=== PATIENT | male | born 1985 | race Caucasian/White ===

== ENCOUNTER → 2016-11-19 | Outpatient (CLI) | payer OTHER ==
[~2016-11-19] MED LIST: AMLO10TA2 PO; GABA300C5 PO; LANTUS2P SQ; LANTUSP SQ; NOVOLOGP2 SQ; ZYRT10TA12 PO
--- NOTE | 2016-11-19 18:01 | RADRPT ---
EXAM DATE/TIME: 11/19/2016 17:15 [facility] COMPARISON: No previous studies available for comparison. INDICATIONS : Hypertension. Evalaute for pneumothorax, pneumonia, or other communicable disease. MEDICAL HISTORY : None. SURGICAL HISTORY : None. ENCOUNTER: Initial ACUITY: 1 day PAIN SCORE: 0/10 LOCATION: Bilateral chest FINDINGS: PA and lateral views of the chest demonstrate the lungs to be symmetrically aerated without evidence of mass, infiltrate or effusion. The cardiomediastinal contours are unremarkable. Osseous structure s are intact. CONCLUSION: No acute disease. Scout Beasley MD FACR on November 19, 2016 at 18:00 Board Certified Radiologist. This report was verified electronically.
== END ==
LOC: HRAD 16:48
PROVIDERS: ATTEND Internal Medicine
DX: I10 Essential (primary) hypertension (principal)
CPT/HCPCS: 71020

== ENCOUNTER 2016-11-26 17:22 | Emergency (ER) | payer OTHER ==
[~2016-11-26] VITALS: Ht 175.3 cm; Wt 85.0 kg
[~2016-11-26 17:22] MED LIST changes: -AMLO10TA2 PO; -GABA300C5 PO; -LANTUS2P SQ
[2016-11-26 17:24] VITALS: BP 181/121; PULSE 100; RESP 20; TEMP 99.6; O2SAT 100
[2016-11-26 17:29] VITALS: BP 186/94
[2016-11-26] MEDS ORDERED: LANTUS2P SQ (18:09)
[2016-11-26] MEDS ORDERED: NOVOLOGP2 SQ (18:09)
[2016-11-26] MEDS ORDERED: SODIUM CHLOR 0.9% 1000 ML INJ 1,000 ML IV ONE (18:17)
--- NOTE | 2016-11-26 18:17 | PD ---
HPI Chief Complaint: Skin Problem Time Seen by Provider: 18:15 Travel History International Travel<30 days: No Contact w/Intl Traveler<30days: No Traveled to known affect area: No History of Present Illness HPI 31-year-old male with history of insulin-dependent diabetes, referred here by his primary care physician for evaluation of vomiting times one week. Patient reports that he has not been checking his blood sugar for the last week and has had several episodes of vomiting. He denies fevers or chills. No diarrhea. No abdominal pain. He does have pain in his bilateral feet and according to the paperwork that was provided by his primary care physician, he has been referred to a exchange clerk. [facility]LY [facility] Past Medical History Diabetes: Yes Patient Takes Glucophage: No Diminished Hearing: No Hypertension: Yes Tetanus Vaccination: Unknown Influenza Vaccination: No Past Surgical History Surgical History: No Previous Surgery Social History Alcohol Use: Yes (OCCASIONAL) Tobacco Use: Yes (4-5 CIGS) Substance Use: No Allergies-Medications (Allergen,Severity, Reaction): Coded Allergies: No Known Allergies (Unverified , 11/26/16) Reported Meds & Prescriptions Reported Meds & Active Scripts Active Reported Lantus Inj (Insulin Glargine) 1,000 Unit/10 Ml Vial 62 Units SQ DAILY Novolog Inj (Insulin Aspart) 1,000 Unit/10 Ml Vial 0 SQ DIRECTED Sliding Scale as directed. Review of Systems Except as stated in HPI: all other systems reviewed are Neg Physical Exam Narrative GENERAL: Well-developed, well-nourished, awake, alert, slightly tremulous, no apparent distress. SKIN: Focused skin assessment warm/dry. Bilateral feet with areas of brown, no necrosis, no warmth or erythema. No ulcerations. HEAD: Atraumatic. Normocephalic. EYES: Pupils equal and round. No scleral icterus. No injection or drainage. ENT: Mucous membranes pink and moist. NECK: Trachea midline. No JVD. CARDIOVASCULAR: Regular rate and rhythm. Bilateral dorsalis pedis pulses are brisk and equal. RESPIRATORY: No accessory muscle use. Clear to auscultation. Breath sounds equal bilaterally. GASTROINTESTINAL: Abdomen soft, non-tender, nondistended. MUSCULOSKELETAL: No obvious deformities. No clubbing. No cyanosis. No edema. NEUROLOGICAL: Awake and alert. No obvious cranial nerve deficits. Motor grossly within normal limits. Normal speech. PSYCHIATRIC: Appropriate mood and affect; insight and judgment normal. Data Data Last Documented VS Vital Signs Date Time Temp Pulse Resp B/P (MAP) Pulse Ox O2 Delivery O2 Flow Rate FiO2 11/26/16 19:19 96 20 166/95 (118) 100 Room Air 11/26/16 17:24 99.6 Orders Orders Complete Blood Count With Diff (11/26/16 18:17) Comprehensive Metabolic Panel (11/26/16 18:17) Beta Hydroxybutyrate (Acetone) (11/26/16 18:17) Blood Gas Venous (Vbg) (11/26/16 18:17) Ecg Monitoring (11/26/16 18:17) Iv Access Insert/Monitor (11/26/16 18:17) Oximetry (11/26/16 18:17) NPO (11/26/16 18:17) Sodium Chlor 0.9% 1000 Ml Inj (Ns 1000 M (11/26/16 18:17) Sodium Chloride 0.9% Flush (Ns Flush) (11/26/16 18:30) Ondansetron Inj (Zofran Inj) (11/26/16 18:30) Labs Laboratory Tests Test 11/26/16 18:30 White Blood Count 7.0 TH/MM3 Red Blood Count 4.45 MIL/MM3 Hemoglobin 16.3 GM/DL Hematocrit 45.5 % Mean Corpuscular Volume 102.1 FL Mean Corpuscular Hemoglobin 36.7 PG Mean Corpuscular Hemoglobin Concent 35.9 % Red Cell Distribution Width 12.7 % Platelet Count 145 TH/MM3 Mean Platelet Volume 8.5 FL Neutrophils (%) (Auto) 65.7 % Lymphocytes (%) (Auto) 22.9 % Monocytes (%) (Auto) 10.8 % Eosinophils (%) (Auto) 0.2 % Basophils (%) (Auto) 0.4 % Neutrophils # (Auto) 4.6 TH/MM3 Lymphocytes # (Auto) 1.6 TH/MM3 Monocytes # (Auto) 0.8 TH/MM3 Eosinophils # (Auto) 0.0 TH/MM3 Basophils # (Auto) 0.0 TH/MM3 CBC Comment DIFF FINAL Differential Comment Blood Gas Puncture Site CL Blood Gas Patient Temperature 98.6 Venous Blood pH 7.47 Venous Blood Partial Pressure CO2 41 mmHg Venous Blood Partial Pressure O2 23 mmHg Venous Blood HCO3 30 mmol/L Venous Blood Oxygen Saturation 39 % Venous Blood Oxygen Content 9.2 Vol % Venous Blood Base Excess 6.0 mmol/L Oxygen Delivery Device RA Blood Urea Nitrogen 7 MG/DL Creatinine 0.74 MG/DL Random Glucose 239 MG/DL Total Protein 8.2 GM/DL Albumin 4.1 GM/DL Calcium Level 9.1 MG/DL Alkaline Phosphatase 153 U/L Aspartate Amino Transf (AST/SGOT) 194 U/L Alanine Aminotransferase (ALT/SGPT) 141 U/L Total Bilirubin 2.5 MG/DL Sodium Level 133 MEQ/L Potassium Level 4.2 MEQ/L Chloride Level 94 MEQ/L Carbon Dioxide Level 28.3 MEQ/L Anion Gap 11 MEQ/L Estimat Glomerular Filtration Rate 123 ML/MIN B-Hydroxybutyrate 2.78 MMOL/L [facility] Medical Decision Making Medical Screen Exam Complete: Yes Emergency Medical Condition: Yes Differential Diagnosis DKA, metabolic abnormality, diabetic neuropathy Narrative Course Vital signs show heart rate 96, blood pressure 166/95, pulse ox 100% on room air , oral temp of 99.6F. CBC shows WBC 7, hemoglobin 16.3, hematocrit 45.5, platelets 145, MCV 102.1. CMP is remarkable for sodium 133, chloride 94, random glucose 240, T bili 2.5, AST 194, ALT 141. Venous pH is 7.47. Beta hydroxybutyrate is 2.78 Patient was given a liter of normal saline IV. He denies alcohol abuse, stating that he has a couple beers a couple times a week. He also denies illicit drug use and IVDU. His feet show no signs of cellulitis. He is ambulating without difficulty. He is tolerating clear liquids orally. I offered to give him some insulin, however he states he will take it when he gets home. He is stable for discharge home with outpatient follow-up with his primary care physician this week. I will also given the name of the exchange clerk with whom to follow-up with this week. He was informed on when to return to the emergency department. He verbalizes understanding and agreement with plan. Diagnosis Primary Impression: Nausea and vomiting Qualified Codes: R11.2 - Nausea with vomiting, unspecified Additional Impressions: Hyperglycemia Diabetic neuropathy Qualified Codes: E10.42 - Type 1 diabetes mellitus with diabetic polyneuropathy Transaminitis Referrals: Emily Mireles DPSwapnil [address] Primary Care Physician 3 days Additional Instructions: Follow-up with your primary care physician this week. Take insulin as prescribed. Follow-up with exchange clerk Dr. Mireles or a exchange clerk of your choice this week. Return to the emergency department for worsening symptoms or any other concerns. Disposition: 01 DISCHARGE HOME Condition: Stable Nathan Strickland MD Nov 26, 2016 18:17
[2016-11-26] MEDS ORDERED: SODIUM CHLORIDE 0.9% FLUSH 10 ML FLUSH IVF PRN (18:30)
[2016-11-26] MEDS ORDERED: ONDANSETRON HCL 4 MG/2 ML VIAL IV PUSH ONE (18:30)
[2016-11-26 18:42] VITALS: O2SAT 98
[2016-11-26 18:49] LABS: BLOOD GAS VENOUS HCO3 30 mmol/L (22-26); BLOOD GAS VENOUS O2 CONTENT 9.2 Vol % (9.0-17.0); BLOOD GAS VENOUS O2 HGB SAT 39 % (70-76); BLOOD GAS VENOUS PCO2 41 mmHg (44-48); BLOOD GAS VENOUS pH 7.47 (7.360-7.400); TEMP CORR TO 98.6
[2016-11-26 18:50] LABS: BLOOD GAS VENOUS PO2 23 mmHg (35-40); CRITICAL VALUE YES; DRAW SITE CL; OXYGEN DEVICE RA
[2016-11-26 19:07] LABS: AUTOMATED NEUTROPHIL # 4.6 TH/MM3 (1.8-7.7); BASOPHIL % 0.4 % (0.0-2.0); EOSINOPHIL % 0.2 % (0.0-4.0); HEMATOCRIT 45.5 % (39.0-51.0); HEMO FLAGS DIFF FINAL; LYMPH % 22.9 % (9.0-44.0); LYMPHOCYTE # 1.6 TH/MM3 (1.0-4.8); MEAN CELL VOLUME 102.1 FL (80.0-100.0); MEAN CORPUSCULAR HEMOGLOBIN 36.7 PG (27.0-34.0); MEAN CORPUSCULAR HGB CONC 35.9 % (32.0-36.0); MONO % 10.8 % (0.0-8.0); NEUT % 65.7 % (16.0-70.0); PLATELET COUNT 145 TH/MM3 (150-450); RED BLOOD COUNT 4.45 MIL/MM3 (4.50-5.90); RED CELL DISTRIBUTION WIDTH 12.7 % (11.6-17.2)
[2016-11-26 19:19] VITALS: BP 166/95; PULSE 96; RESP 20; O2SAT 100
[2016-11-26 19:22] LABS: ANION GAP 11 MEQ/L (5-15); AST (GOT) 194 U/L (15-37); BICARBONATE 28.3 MEQ/L (21.0-32.0); BLOOD UREA NITROGEN 7 MG/DL (7-18); CHLORIDE 94 MEQ/L (98-107); GLOMERULAR FILTRATION RATE 123 ML/MIN (>89); POTASSIUM 4.2 MEQ/L (3.5-5.1); SODIUM (NA) 133 MEQ/L (136-145)
[2016-11-26 19:29] LABS: ALKALINE PHOSPHATASE 153 U/L (45-117); ALT (GPT) 141 U/L (12-78); BETA-HYDROXYBUTYRATE 2.78 MMOL/L (0.00-0.39); TOTAL BILIRUBIN ADULT 2.5 MG/DL (0.2-1.0)
[2016-12-02 08:37] LABS: STAT YES
[2016-12-24] MEDS ORDERED: GABA300C5 PO (15:07)
[2016-12-24] MEDS ORDERED: AMLO10TA2 PO (15:07)
== END 2016-11-26 20:29 | disposition home or self-care (01) ==
LOC: NEPD 17:22
DX: R11.2 Nausea with vomiting, unspecified (principal); E10.65 Type 1 diabetes mellitus with hyperglycemia; E10.42 Type 1 diabetes mellitus with diabetic polyneuropathy; Z79.4 Long term (current) use of insulin; R74.0 Nonspecific elevation of levels of transaminase and lactic acid dehydrogenase [LDH]; I10 Essential (primary) hypertension
CPT/HCPCS: 80053; 82010; 82805; 85025; 96374; 99284; J2405; J7030

== ENCOUNTER 2017-04-20 22:37 | Emergency (ER) | payer OTHER ==
[~2017-04-20 22:37] MED LIST changes: +AMLO10TA2 PO; +GABA300C5 PO; +LANTUS2P SQ; -LANTUSP SQ; -ZYRT10TA12 PO
[2017-04-20 22:39] VITALS: BP 134/64; PULSE 65; RESP 16; O2SAT 97
--- NOTE | 2017-04-20 22:54 | PD ---
HPI Chief Complaint: Altered Mental Status Time Seen by Provider: 22:48 Travel History International Travel<30 days: No Contact w/Intl Traveler<30days: No Traveled to known affect area: No History of Present Illness HPI 31-year-old male was brought in by EMS from home for altered mental status. Patient has history of diabetes. Patient also has history of alcohol abuse. Patient was found altered mental status this evening. Patient did not provide any information. GCS at the scene was 11. Patient was brought in for evaluation. Patient's awake and confused. PFSH Past Medical History Diabetes: Yes Diminished Hearing: No Hypertension: Yes Social History Alcohol Use: Yes (OCCASIONAL) Tobacco Use: Yes (4-5 CIGS) Substance Use: No Allergies-Medications (Allergen,Severity, Reaction): Coded Allergies: No Known Allergies (Verified Adverse Reaction, Unknown, 04/20/17) Reported Meds & Prescriptions Reported Meds & Active Scripts Active Reported Amlodipine (Amlodipine Besylate) 10 Mg Tab PO DAILY Gabapentin 300 Mg Cap 300 Mg PO TID Lantus Inj (Insulin Glargine) 1,000 Unit/10 Ml Vial 62 Units SQ DAILY Novolog Inj (Insulin Aspart) 1,000 Unit/10 Ml Vial 0 SQ DIRECTED Sliding Scale as directed. Review of Systems General / Constitutional: No: Fever Eyes: No: Visual changes HENT: No: Headaches Cardiovascular: No: Chest Pain or Discomfort Respiratory: No: Shortness of Breath Gastrointestinal: No: Abdominal Pain Genitourinary: No: Dysuria Musculoskeletal: No: Pain Skin: No Rash Neurologic: No: Weakness Psychiatric: No: Depression Endocrine: No: Polydipsia Hematologic/Lymphatic: No: Easy Bruising Physical Exam Narrative GENERAL: Well-nourished, well-developed patient. SKIN: Focused skin assessment warm/dry. HEAD: Normocephalic. EYES: No scleral icterus. No injection or drainage. Pupils 3 mm equal reactive. NECK: Supple, trachea midline. No JVD or lymphadenopathy. No meningismus CARDIOVASCULAR: Regular rate and rhythm without murmurs, gallops, or rubs. RESPIRATORY: Breath sounds equal bilaterally. No accessory muscle use. GASTROINTESTINAL: Abdomen soft, non-tender, nondistended. MUSCULOSKELETAL: No cyanosis, or edema. BACK: Nontender without obvious deformity. No CVA tenderness. Neurologic exam: Patient is awake however confused. Patient does not answer questions appropriately. Patient moves all extremities well. No obvious focal neurological deficit. Data Data Last Documented VS Vital Signs Date Time Temp Pulse Resp B/P (MAP) Pulse Ox O2 Delivery O2 Flow Rate FiO2 04/20/17 23:43 98 2.00 04/20/17 22:39 65 16 134/64 (87) Orders Orders Electrocardiogram (04/20/17 22:49) Complete Blood Count With Diff (04/20/17 22:49) Comprehensive Metabolic Panel (04/20/17 22:49) Prothrombin Time / Inr (Pt) (04/20/17 22:49) Act Partial Throm Time (Ptt) (04/20/17 22:49) Urinalysis - C+S If Indicated (04/20/17 22:49) Beta Hydroxybutyrate (Acetone) (04/20/17 22:49) Thyroid Stimulating Hormone (04/20/17 22:49) Chest, Single Ap (04/20/17 22:49) Ct Brain W/O Iv Contrast(Rout) (04/20/17 22:49) Iv Access Insert/Monitor (04/20/17 22:49) Ecg Monitoring (04/20/17 22:49) Oximetry (04/20/17 22:49) Drug Screen, Random Urine (04/20/17 22:49) Alcohol (Ethanol) (04/20/17 22:49) Salicylates (Aspirin) (04/20/17 22:49) Tylenol (Acetaminophen) (04/20/17 22:49) Sodium Chlor 0.9% 1000 Ml Inj (Ns 1000 M (04/20/17 23:00) Thiamine Inj (Thiamine Inj) (04/20/17 23:00) Lorazepam Inj (Ativan Inj) (04/21/17 00:00) Labs Laboratory Tests Test 04/20/17 23:20 White Blood Count 5.9 TH/MM3 Red Blood Count 3.74 MIL/MM3 Hemoglobin 13.8 GM/DL Hematocrit 39.0 % Mean Corpuscular Volume 104.4 FL Mean Corpuscular Hemoglobin 37.0 PG Mean Corpuscular Hemoglobin Concent 35.4 % Red Cell Distribution Width 12.7 % Platelet Count 124 TH/MM3 Mean Platelet Volume 7.9 FL Neutrophils (%) (Auto) 53.4 % Lymphocytes (%) (Auto) 38.4 % Monocytes (%) (Auto) 7.2 % Eosinophils (%) (Auto) 0.6 % Basophils (%) (Auto) 0.4 % Neutrophils # (Auto) 3.2 TH/MM3 Lymphocytes # (Auto) 2.3 TH/MM3 Monocytes # (Auto) 0.4 TH/MM3 Eosinophils # (Auto) 0.0 TH/MM3 Basophils # (Auto) 0.0 TH/MM3 CBC Comment DIFF FINAL Differential Comment Prothrombin Time 12.3 SEC Prothromb Time International Ratio 1.2 RATIO Activated Partial Thromboplast Time 25.7 SEC Blood Urea Nitrogen 1 MG/DL Creatinine 0.46 MG/DL Random Glucose 286 MG/DL Total Protein 6.9 GM/DL Albumin 3.0 GM/DL Calcium Level 7.8 MG/DL Alkaline Phosphatase 430 U/L Aspartate Amino Transf (AST/SGOT) 223 U/L Alanine Aminotransferase (ALT/SGPT) 61 U/L Total Bilirubin 1.3 MG/DL Sodium Level 142 MEQ/L Potassium Level 3.4 MEQ/L Chloride Level 102 MEQ/L Carbon Dioxide Level 28.0 MEQ/L Anion Gap 12 MEQ/L Estimat Glomerular Filtration Rate 212 ML/MIN Thyroid Stimulating Hormone 3rd Gen 2.870 uIU/ML Salicylates Level LESS THAN 1.7 MG/DL Acetaminophen Level LESS THAN 2.0 MCG/ML Ethyl Alcohol Level 460 MG/DL B-Hydroxybutyrate 0.83 MMOL/L [facility] Medical Decision Making Medical Screen Exam Complete: Yes Emergency Medical Condition: Yes Interpretation(s) Last Impressions Chest X-Ray 04/20/17 2249 Signed Impressions: Service Date/Time: Thursday, April 20, 2017 23:26 - CONCLUSION: Midinspiratory exam with no acute cardiopulmonary disease.. Deyvi Mcmillan MD 12:26 AM. CBC WBC of 5.9. Hemoglobin 13.8 hematocrit 39.0. MCV 104.4. Potassium 3.4. Glucose 286. Calcium 7.8. Total bili 1.3. AST 223. Alkaline phosphatase 430. Acetaminophen and salicylate level normal. Alcohol 460. Beta hydroxybutyrate 0.83. Differential Diagnosis Differential diagnosis including intoxication, substance-induced mood disorder, dehydration, electrolyte imbalance, TIA, CVA, Narrative Course 31-year-old male was brought in for altered mental status. Patient has history of diabetes. Patient also has history of alcohol abuse. Normal saline solution 1 L IV bolus. Thiamine 100 mg IV. Ativan 1 mg IV. Calcium gluconate 1 g IV given. Diagnosis Primary Impression: Hyperglycemia Additional Impressions: Alcohol intoxication Qualified Codes: F10.920 - Alcohol use, unspecified with intoxication, uncomplicated Hypocalcemia Patient Instructions: General Instructions Additional Instructions: Advise [facility]. Accu-Chek blood sugar daily. Follow-up with personal physician. Med/Other Pt SpecificInfo: No Change to Meds Disposition: 01 DISCHARGE HOME Condition: Stable Ben Trent MD Apr 20, 2017 22:54
[2017-04-20] MEDS ORDERED: SODIUM CHLOR 0.9% 1000 ML INJ 1,000 ML IV ONE (23:00)
[2017-04-20] MEDS ORDERED: THIAMINE INJ 100 MG in SODIUM CHLORIDE 0.9% INJ 100 ML IV ONE (23:00)
[2017-04-20 23:43] VITALS: O2SAT 98
[2017-04-20 23:45] LABS: AUTOMATED NEUTROPHIL # 3.2 TH/MM3 (1.8-7.7); BASOPHIL % 0.4 % (0.0-2.0); EOSINOPHIL % 0.6 % (0.0-4.0); HEMOGLOBIN 13.8 GM/DL (13.0-17.0); LYMPH % 38.4 % (9.0-44.0); LYMPHOCYTE # 2.3 TH/MM3 (1.0-4.8); MEAN CELL VOLUME 104.4 FL (80.0-100.0); MEAN CORPUSCULAR HGB CONC 35.4 % (32.0-36.0); MEAN PLATELET VOLUME 7.9 FL (7.0-11.0); MONO % 7.2 % (0.0-8.0); MONOCYTE # 0.4 TH/MM3 (0-0.9); NEUT % 53.4 % (16.0-70.0); PLATELET COUNT 124 TH/MM3 (150-450); RED BLOOD COUNT 3.74 MIL/MM3 (4.50-5.90); RED CELL DISTRIBUTION WIDTH 12.7 % (11.6-17.2); WHITE BLOOD COUNT 5.9 TH/MM3 (4.0-11.0)
[2017-04-20 23:55] LABS: AST (GOT) 223 U/L (15-37); BLOOD UREA NITROGEN 1 MG/DL (7-18); CALCIUM 7.8 MG/DL (8.5-10.1); CHLORIDE 102 MEQ/L (98-107); CREATININE 0.46 MG/DL (0.60-1.30); GLOMERULAR FILTRATION RATE 212 ML/MIN (>89); GLUCOSE,RANDOM 286 MG/DL (74-106); SODIUM (NA) 142 MEQ/L (136-145)
[2017-04-20 23:56] LABS: INTERNATIONAL NORMALIZED RATIO 1.2 RATIO; PROTHROMBIN TIME - PATIENT 12.3 SEC (9.8-11.6)
[2017-04-21] MEDS ORDERED: LORazepam 2 MG/ML VIAL IV PUSH ONE
[2017-04-21 00:05] LABS: ALKALINE PHOSPHATASE 430 U/L (45-117); ALT (GPT) 61 U/L (12-78); TOTAL BILIRUBIN ADULT 1.3 MG/DL (0.2-1.0); TOTAL PROTEIN 6.9 GM/DL (6.4-8.2)
--- NOTE | 2017-04-21 00:10 | RADRPT ---
EXAM DATE/TIME: 04/20/2017 23:26 [facility] COMPARISON: CHEST PA & LAT, November 19, 2016, 17:15. INDICATIONS : Short of breath. MEDICAL HISTORY : Hypertension. SURGICAL HISTORY : None. ENCOUNTER: Initial ACUITY: 1 day PAIN SCORE: 0/10 LOCATION: Bilateral chest FINDINGS: A single view of the chest demonstrates the lungs to be symmetrically aerated without evidence of mas s, infiltrate or effusion. The heart size is at the upper limits of normal due to the more Midinspir atory view. There is no perihilar edema.. Osseous structures are intact. CONCLUSION: Midinspiratory exam with no acute cardiopulmonary disease.. Deyvi Mcmillan MD on April 21, 2017 at 0:08 Board Certified Radiologist. This report was verified electronically.
[2017-04-21 00:15] LABS: ACETAMINOPHEN LESS THAN 2.0 MCG/ML (10.0-30.0)
[2017-04-21] MEDS ORDERED: CALCIUM GLUCONATE INJ 1 GM in SODIUM CHLORIDE 0.9% INJ 100 ML IV ONE (00:45)
[2017-04-21 03:25] LABS: AMORPHOUS SEDIMENT, URINE RARE; BACTERIA, URINE OCC /hpf; BILIRUBIN, URINE NEG (NEG); BLOOD, URINE NEG (NEG); GLUCOSE,URINE 1000 mg/dL (NEG); KETONE, URINE TRACE mg/dL (NEG); NITRITE,URINE NEG (NEG); URINE COLOR YELLOW (YELLW/STRAW); URINE LEUKOCYTE ESTERASE NEG (NEG)
--- NOTE | 2017-04-21 03:45 | RADRPT ---
EXAM DATE/TIME: 04/21/2017 03:10 [facility] COMPARISON: No previous studies available for comparison. INDICATIONS : Altered mental status. RADIATION DOSE: 69.15 CTDIvol (mGy) MEDICAL HISTORY : Hypertension. Diabetes mellitus type 2. SURGICAL HISTORY : None. ENCOUNTER: Initial ACUITY: 1 day PAIN SCALE: Non-responsive LOCATION: cranial TECHNIQUE: Multiple contiguous axial images were obtained of the head. Using automated exposure control and adj ustment of the mA and/or kV according to patient size, radiation dose was kept as low as reasonably a chievable to obtain optimal diagnostic quality images. DICOM format image data is available electro nically for review and comparison. FINDINGS: CEREBRUM: The ventricles are normal for age. No evidence of midline shift, mass lesion, hemorrhage or acute in farction. No extra-axial fluid collections are seen. POSTERIOR FOSSA: The cerebellum and brainstem are intact. The 4th ventricle is midline. The cerebellopontine angle i s unremarkable. EXTRACRANIAL: The visualized portion of the orbits is intact. SKULL: The calvaria is intact. No evidence of skull fracture. CONCLUSION: Unremarkable noncontrast head CT Deyvi Mcmillan MD on April 21, 2017 at 3:43 Board Certified Radiologist. This report was verified electronically.
--- NOTE | 2017-04-21 18:20 | EKG ---
Date Performed: 04/21/2017 Time Performed: 03:44:44 PTAGE: 31 years EKG: SINUS TACHYCARDIA ABNORMAL RHYTHM ECG NO PREVIOUS TRACING DOCTOR: Shawnee Barba Interpretating Date/Time 04/21/2017 18:18:19
== END 2017-04-21 06:33 | disposition home or self-care (01) ==
LOC: NEPE 22:37
DX: E11.65 Type 2 diabetes mellitus with hyperglycemia (principal); F10.129 Alcohol abuse with intoxication, unspecified; E83.51 Hypocalcemia; R94.31 Abnormal electrocardiogram [ECG] [EKG]; I10 Essential (primary) hypertension; R41.0 Disorientation, unspecified; Z72.0 Tobacco use; Z79.4 Long term (current) use of insulin; Z79.899 Other long term (current) drug therapy
CPT/HCPCS: 70450; 71045; 80053; 80307; 81001; 82010; 84443; 85025; 85610; 85730; 93005; 96361; 96365; 96366; 96368; 96375; 99285; J0610; J2060; J3411; J7030

== ENCOUNTER 2017-08-01 13:45 | Inpatient (IN) ==
[2017-08-29] MEDS ORDERED: Albumin Human 25% Inj 50 ML IV.SIG ONE (23:33)
[2017-08-30] MEDS ORDERED: guaiFENesin/Dextromethorphan 200 MG/20 MG 10 ML UDC PO PRN (00:01)
[2017-08-30 07:36] LABS: Activated Partial Thrombo Time 53.9 sec (24.3-30.1); INR 4.2 Ratio; Prothrombin Time 42.5 sec (9.8-11.6)
[2017-08-30 08:11] LABS: Baso % (Auto) 0.3 % (0.0-2.0); Hematocrit 25.5 % (39.0-51.0); Hemoglobin 8.7 gm/dL (13.0-17.0); Lymph # (Auto) 0.4 th/mm3 (1.0-4.8); Lymph % (Auto) 5.5 % (9.0-44.0); Mean Corpuscular Hemoglobin 36.5 pg (27.0-34.0); Mean Corpuscular Volume 107.6 fL (80.0-100.0); Mean Platelet Volume 9.8 fL (7.0-11.0); Mono # (Auto) 0.2 th/mm3 (0.0-0.9); Mono % (Auto) 2.4 % (0.0-8.0); Neut # (Auto) 6.2 th/mm3 (1.8-7.7); Neut % (Auto) 91.8 % (16.0-70.0); Platelet Count 38 th/mm3 (150-450); Red Blood Count 2.37 mil/mm3 (4.50-5.90); Red Cell Distribution Width 15.7 % (11.6-17.2); White Blood Count 6.7 th/mm3 (4.0-11.0)
[2017-08-30] MEDS: Insulin NovoLOG Aspart Correctional Sugar Inj SQ SCH ×4 (08:24→20:19)
[2017-08-30 08:28] LABS: Alanine Aminotransferase 73 U/L (12-78); Albumin 1.9 g/dL (3.4-5.0); Alkaline Phosphatase 163 U/L (45-117); Anion Gap 14 meq/L (5-15); Aspartate Aminotransferase 108 U/L (15-37); Blood Urea Nitrogen 53 mg/dL (7-18); Calcium 7.9 mg/dL (8.5-10.1); Carbon Dioxide 18.3 meq/L (21.0-32.0); Chloride 110 meq/L (98-107); Glomerular Filtration Rate 51 mL/min (>89); Glucose,Random 121 mg/dL (74-106); Potassium 3.7 meq/L (3.5-5.1); Sodium 142 meq/L (136-145); Total Protein 4.1 g/dL (6.4-8.2)
[2017-08-30] MEDS ORDERED: Insulin Detemir Inj 1,000 UNIT/10 ML Vial SQ SCH ×2 (09:00→21:00)
[2017-08-30] MEDS: SODIUM CHLOR 0.9% IV.SIG SCH ×2 (09:29→21:52)
[2017-08-30] MEDS: CEFTAROLINE IV.SIG SCH ×2 (09:29→21:52)
[2017-08-30 09:33] LABS: Lymphocytes 2 % (9-44); Monocytes 4 % (0-8)
[2017-08-30 09:34] LABS: Acanthocytes 1+; Platelet Morphology Normal (Normal); Tear Drop Cells 1+; Toxic Granulation 1+
[2017-08-30] MEDS: MethylPREDNISolone Sod Succinate Inj 40 MG/ML Vial IV.PUSH SCH (09:45)
[2017-08-30] MEDS: guaiFENesin 600 MG ER Tablet PO SCH ×2 (09:46→21:51)
[2017-08-30] MEDS: Spironolactone 25 MG Tablet PO SCH (09:47)
[2017-08-30] MEDS: Pentoxifylline 400 MG Controlled Release Tablet PO SCH ×2 (09:47→18:22)
[2017-08-30] MEDS: rifAXIMin 550 MG Tablet PO SCH ×2 (09:48→21:51)
[2017-08-30] MEDS: Famotidine 20 MG Tablet PO SCH ×2 (09:49→21:51)
[2017-08-30] MEDS: Potassium Bicarbonate 25 MEQ Effervescent Tablet PO SCH ×2 (10:05→21:50)
[2017-08-30] MEDS: Cefepime Inj 2,000 MG in Sodium Chlor 0.9% Inj 100 ML IV.SIG SCH ×2 (11:04→21:49)
[2017-08-30] MEDS: Albumin Human 25% Inj 50 ML IV.SIG SCH ×2 (11:33→21:50)
--- NOTE | 2017-08-30 12:25 | P.PNIM ---
Subjective Interval history: Platelets without decline in hemoglobin. Further monitoring needed for this. INR is 4.2 today. Physical Exam Vital signs: Vital Signs 08/29/17 20:00 08/30/17 00:00 08/30/17 04:00 Temperature 97.1 F L 97.2 F L 98.7 F Pulse Rate 97 H 92 H 90 Respiratory Rate 18 19 20 Blood Pressure 104/57 L 112/61 104/57 L Pulse Oximetry 95 92 L 93 L 08/30/17 04:36 08/30/17 08:00 Temperature 97.4 F L Pulse Rate 87 93 H Respiratory Rate Blood Pressure 107/58 L Pulse Oximetry 18 L Intake & Output 08/29/17 08/30/17 08/30/17 18:59 06:59 18:59 Intake Total 200 / 200 Balance 200 / 200 Weight 97.1 kg Intake: IV 200 / 200 Maxipime Inj 2,000 MG In NS Inj 100 / 100 100 ML @ 200 mls/hr IV.SIG Q12H [facility] Rx#:[id number] Teflaro Inj 600 MG In NS Inj 100 / 100 100 ML @ 100 mls/hr IV.SIG Q12H [facility] Rx#:[id number] - Routine HEENT Exam Comments: GENERAL: NAD, A&Ox3 HEAD: Normocephalic. NECK: Supple, trachea midline. No lymphadenopathy. EYES: No scleral icterus. No injection or drainage. Jaundice sclera. CARDIOVASCULAR: Regular rate and rhythm without murmurs, gallops, or rubs. RESPIRATORY: Breath sounds equal bilaterally. No accessory muscle use. GASTROINTESTINAL: Abdomen soft, non-tender, nondistended. MUSCULOSKELETAL: No cyanosis, or edema. SKIN: Warm and dry. Jaundice. NEURO: No focal neurological deficitis. Results - Labs CBC & Chem 7: 08/30/17 06:00 08/30/17 06:00 Labs: Laboratory Results - last 24 hr 08/28/17 08/28/17 08/28/17 11:48 11:48 11:48 WBC 7.1 RBC 2.36 L Hgb 8.7 L Hct 25.4 L MCV 107.7 H MCH 36.8 H MCHC 34.2 RDW 15.8 Plt Count 48 L D MPV 10.0 Prelim Diff (Auto) Neut % (Auto) 94.8 H Lymph % (Auto) 1.0 L [place] % (Auto) 2.9 Eos % (Auto) 0.0 Baso % (Auto) 1.3 Neut # (Auto) 6.7 Lymph # (Auto) 0.1 L [place] # (Auto) 0.2 Eos # (Auto) 0.0 Baso # (Auto) 0.1 CBC Comment AUTO DIFF WBC Differential Total Counted Neutrophils % (Manual) Seg Neuts % (Manual) Band Neutrophils % Band Neuts % (Manual) Lymphocytes % Lymphocytes % (Manual) Monocytes % Monocytes % (Manual) Neutrophils # (Manual) Abs Neuts (Manual) Differential Comment AUTO DIFF CONFIRMED Toxic Granulation Platelet Estimate Platelet Morphology Plt Morphology Comment Tear Drop Cells Acanthocytes (Spur) Keratocytes PT 40.0 H INR 4.0 APTT 47.4 H Sodium 141 Potassium 3.6 Chloride 110 H Carbon Dioxide 17.9 L Anion Gap 13 BUN 45 H Creatinine 1.37 H Estimated GFR 60 L POC Glucose Random Glucose 113 H Calcium 7.7 L Magnesium 1.9 Total Bilirubin 24.1 H AST 128 H ALT 72 Alkaline Phosphatase 183 H Ammonia Total Protein 4.3 L Albumin 2.0 L 08/29/17 08/29/17 08/29/17 07:19 07:19 07:19 WBC 7.0 RBC 2.48 L Hgb 9.1 L Hct 26.5 L MCV 106.8 H MCH 36.5 H MCHC 34.2 RDW 15.9 Plt Count 48 L MPV 10.2 Prelim Diff (Auto) Neut % (Auto) 91.7 H Lymph % (Auto) 6.3 L [place] % (Auto) 1.9 Eos % (Auto) 0.1 Baso % (Auto) 0.0 Neut # (Auto) 6.5 Lymph # (Auto) 0.4 L [place] # (Auto) 0.1 Eos # (Auto) 0.0 Baso # (Auto) 0.0 CBC Comment AUTO DIFF WBC Differential Total Counted 100 Neutrophils % (Manual) 79 H Seg Neuts % (Manual) Band Neutrophils % 10 H Band Neuts % (Manual) Lymphocytes % 9 Lymphocytes % (Manual) Monocytes % 2 Monocytes % (Manual) Neutrophils # (Manual) 6.2 Abs Neuts (Manual) Differential Comment FINAL DIFF MANUAL Toxic Granulation 1+ H Platelet Estimate LOW L Platelet Morphology Plt Morphology Comment ENLARGED H Tear Drop Cells 1+ H Acanthocytes (Spur) Keratocytes PT 37.2 H INR 3.7 APTT 48.6 H Sodium 141 Potassium 3.4 L Chloride 110 H Carbon Dioxide 16.4 L Anion Gap 15 BUN 51 H Creatinine 1.52 H Estimated GFR 53 L POC Glucose Random Glucose 152 H Calcium 7.8 L Magnesium Total Bilirubin 24.4 H AST 139 H ALT 80 H Alkaline Phosphatase 179 H Ammonia Total Protein 4.2 L Albumin 1.8 L 08/30/17 08/30/17 08/30/17 06:00 06:00 06:00 WBC RBC Hgb Hct MCV MCH MCHC RDW Plt Count MPV Prelim Diff (Auto) Neut % (Auto) Lymph % (Auto) [place] % (Auto) Eos % (Auto) Baso % (Auto) Neut # (Auto) Lymph # (Auto) [place] # (Auto) Eos # (Auto) Baso # (Auto) CBC Comment WBC Differential Total Counted Neutrophils % (Manual) Seg Neuts % (Manual) Band Neutrophils % Band Neuts % (Manual) Lymphocytes % Lymphocytes % (Manual) Monocytes % Monocytes % (Manual) Neutrophils # (Manual) Abs Neuts (Manual) Differential Comment Toxic Granulation Platelet Estimate Platelet Morphology Plt Morphology Comment Tear Drop Cells Acanthocytes (Spur) Keratocytes PT 42.5 H INR 4.2 APTT 53.9 H Sodium 142 Potassium 3.7 Chloride 110 H Carbon Dioxide 18.3 L Anion Gap 14 BUN 53 H Creatinine 1.58 H Estimated GFR 51 L POC Glucose Random Glucose 121 H Calcium 7.9 L Magnesium Total Bilirubin 23.5 H AST 108 H ALT 73 Alkaline Phosphatase 163 H Ammonia 47 H Total Protein 4.1 L Albumin 1.9 L 08/30/17 08/30/17 08/30/17 06:00 07:42 11:55 WBC 6.7 RBC 2.37 L Hgb 8.7 L Hct 25.5 L MCV 107.6 H MCH 36.5 H MCHC 34.0 RDW 15.7 Plt Count 38 L MPV 9.8 Prelim Diff (Auto) Slide review pending Neut % (Auto) 91.8 H Lymph % (Auto) 5.5 L [place] % (Auto) 2.4 Eos % (Auto) 0.0 Baso % (Auto) 0.3 Neut # (Auto) 6.2 Lymph # (Auto) 0.4 L [place] # (Auto) 0.2 Eos # (Auto) 0.0 Baso # (Auto) 0.0 CBC Comment WBC Differential Manual diff final Total Counted Neutrophils % (Manual) Seg Neuts % (Manual) 86 H Band Neutrophils % Band Neuts % (Manual) 8 H Lymphocytes % Lymphocytes % (Manual) 2 L Monocytes % Monocytes % (Manual) 4 Neutrophils # (Manual) Abs Neuts (Manual) 6.3 Differential Comment . Toxic Granulation 1+ H Platelet Estimate Low L Platelet Morphology Normal Plt Morphology Comment Tear Drop Cells 1+ H Acanthocytes (Spur) 1+ H Keratocytes Occ H PT INR APTT Sodium Potassium Chloride Carbon Dioxide Anion Gap BUN Creatinine Estimated GFR POC Glucose 110 86 Random Glucose Calcium Magnesium Total Bilirubin AST ALT Alkaline Phosphatase Ammonia Total Protein Albumin Assessment and Plan - Plan 31-year-old male admitted secondary to jaundice with liver failure. Monitor for any signs of bleeding. Continue to monitor CBC. Worsening of platelets and INR today. Ammonia levels are mildly elevated. Therapy change to 7 days a week. Continue to monitor labs for liver function, hyperbilirubinemia, and coagulopathy. Acute liver failure Transaminitis Hyperbilirubinemia Hepatic coagulopathy Not improving Gastroenterology following HIDA scan report shows no obstruction Primary liver failure with coagulopathy appears present Biopsy would be nice the patient cannot be stabilizes far for biopsy of the liver. Continue to monitor LFTs and bilirubin level Continue Xifaxan, lactulose, aldactone, and steroids. Continue pentoxifylline. low sodium diet. Diabetes mellitus type 2 Follow blood sugars Insulin sliding scale Diabetic diet Microcytic anemia Risk with coagulopathy Continue to monitor H&H Dehydration Resolved Hypokalemia Monitor and replace as needed DVT prophylaxis SCDs, given bleed risk no anticoagulation Discharge Planning Not yet stable. Patient will need clinical stability prior to discharge
--- NOTE | 2017-08-30 13:40 | XR ---
EXAM DATE: 08/30/2017 1:27 PM EDT AGE/SEX: 32 years / Male INDICATIONS: Shortness of breath. CLINICAL DATA: This is the patient's initial encounter. Patient reports that signs and symptoms have been present for 1 day and indicates a pain score of Nonresponsive. MEDICAL/SURGICAL HISTORY: . Cardiovascular disease. Diabetes. Neuropathy None. COMPARISON: [facility], CHEST SINGLE AP, 08/25/2017. . FINDINGS: Worsening hazy infiltrate in the right lung base. Slight persistent opacity in the medial left base. Cardiac contours are grossly satisfactory accounting for technique and rotation. CONCLUSION: Worsening right base infiltrate. Electronically signed by: Pascual Flores MD 08/30/2017 1:39 PM EDT
[2017-08-30] MEDS: Morphine Inj 4 MG/ML Vial IV.PUSH PRN (15:56)
[2017-08-31] MEDS: Pentoxifylline 400 MG Controlled Release Tablet PO SCH ×3 (02:54→17:58)
[2017-08-31] MEDS: Morphine Inj 4 MG/ML Vial IV.PUSH PRN (03:09)
[2017-08-31 06:51] LABS: Baso % (Auto) 0.1 % (0.0-2.0); Eos % (Auto) 0.4 % (0.0-4.0); Hematocrit 23.3 % (39.0-51.0); Lymph # (Auto) 0.3 th/mm3 (1.0-4.8); Lymph % (Auto) 5.3 % (9.0-44.0); Mean Corpuscular HGB Conc 34.4 % (32.0-36.0); Mean Corpuscular Hemoglobin 36.7 pg (27.0-34.0); Mean Corpuscular Volume 106.8 fL (80.0-100.0); Mean Platelet Volume 9.2 fL (7.0-11.0); Mono # (Auto) 0.1 th/mm3 (0.0-0.9); Mono % (Auto) 2.5 % (0.0-8.0); Neut # (Auto) 4.9 th/mm3 (1.8-7.7); Neut % (Auto) 91.7 % (16.0-70.0); Platelet Count 29 th/mm3 (150-450); Red Blood Count 2.18 mil/mm3 (4.50-5.90); Red Cell Distribution Width 15.9 % (11.6-17.2); White Blood Count 5.3 th/mm3 (4.0-11.0)
[2017-08-31 07:40] LABS: Alanine Aminotransferase 67 U/L (12-78)
[2017-08-31 08:58] LABS: Albumin 1.7 g/dL (3.4-5.0); Alkaline Phosphatase 149 U/L (45-117); Anion Gap 15 meq/L (5-15); Aspartate Aminotransferase 100 U/L (15-37); Blood Urea Nitrogen 58 mg/dL (7-18); Carbon Dioxide 16.2 meq/L (21.0-32.0); Chloride 111 meq/L (98-107); Glomerular Filtration Rate 50 mL/min (>89); Glucose,Random 90 mg/dL (74-106); Potassium 3.6 meq/L (3.5-5.1); Sodium 142 meq/L (136-145)
[2017-08-31 09:02] LABS: Lymphocytes 4 % (9-44); Monocytes 4 % (0-8); Platelet Morphology Normal (Normal); Toxic Granulation 1+
[2017-08-31 09:03] LABS: Acanthocytes Occ; Tear Drop Cells 1+
[2017-08-31] MEDS: Insulin NovoLOG Aspart Correctional Sugar Inj SQ SCH ×4 (09:24→21:36)
[2017-08-31] MEDS: Spironolactone 25 MG Tablet PO SCH (09:28)
[2017-08-31] MEDS: Potassium Bicarbonate 25 MEQ Effervescent Tablet PO SCH ×2 (09:28→21:35)
[2017-08-31] MEDS: Famotidine 20 MG Tablet PO SCH ×2 (09:29→21:37)
[2017-08-31] MEDS: guaiFENesin 600 MG ER Tablet PO SCH ×2 (09:29→21:36)
[2017-08-31] MEDS: MethylPREDNISolone Sod Succinate Inj 40 MG/ML Vial IV.PUSH SCH (09:31)
[2017-08-31] MEDS: Albumin Human 25% Inj 50 ML IV.SIG SCH ×2 (09:35→21:25)
[2017-08-31] MEDS: rifAXIMin 550 MG Tablet PO SCH ×2 (10:35→21:37)
[2017-08-31] MEDS: SODIUM CHLOR 0.9% IV.SIG SCH ×2 (11:13→21:32)
[2017-08-31] MEDS: CEFTAROLINE IV.SIG SCH ×2 (11:13→21:32)
[2017-08-31] MEDS: Cefepime Inj 2,000 MG in Sodium Chlor 0.9% Inj 100 ML IV.SIG SCH (12:33)
--- NOTE | 2017-08-31 13:28 | P.PNIM ---
Subjective Interval history: No significant changes compared to previous day. She has a slight downward trend in his platelet count. Mild delirium is present. Family is considering transfer to [facility]. We discussed that this case is not medical necessity hospital transfer. They are talking with her primary care doctor in [place] to see if arrangements for an accepting physician, possibly a correction warden, can be established. They will keep us informed about this. Physical Exam Vital signs: Vital Signs 08/30/17 16:00 08/30/17 20:00 08/30/17 23:35 Temperature 97.3 F L 97.1 F L Pulse Rate 89 90 85 Respiratory Rate 18 20 Blood Pressure 109/54 L 111/53 L Pulse Oximetry 94 L 93 L 08/31/17 00:00 08/31/17 01:32 08/31/17 04:00 Temperature 97 F L 98 F Pulse Rate 99 H 93 H 90 Respiratory Rate 20 20 Blood Pressure 137/100 H 99/56 L Pulse Oximetry 93 L 97 08/31/17 04:36 Temperature Pulse Rate 84 Respiratory Rate Blood Pressure Pulse Oximetry Intake & Output 08/30/17 08/31/17 08/31/17 18:59 06:59 18:59 Intake Total 970 / 970 250 / 250 Balance 970 / 970 250 / 250 Intake: IV 250 / 250 250 / 250 Flexbumin 25% Inj 50 ML @ 60 50 / 50 50 / 50 mls/hr IV.SIG Q12H OLY Rx#: [id number] Maxipime Inj 2,000 MG In NS Inj 100 / 100 100 / 100 100 ML @ 200 mls/hr IV.SIG Q12H OLY Rx#:[id number] Teflaro Inj 600 MG In NS Inj 100 / 100 100 / 100 100 ML @ 100 mls/hr IV.SIG Q12H OLY Rx#:[id number] Oral 720 / 720 Other: # Voids 2 # Urine Diapers 2 # Bowel Movements 3 - Routine HEENT Exam Comments: GENERAL: NAD, A&Ox1 HEAD: Normocephalic. NECK: Supple, trachea midline. No lymphadenopathy. EYES: No scleral icterus. No injection or drainage. Jaundice sclera CARDIOVASCULAR: Regular rate and rhythm without murmurs, gallops, or rubs. RESPIRATORY: Breath sounds equal bilaterally. No accessory muscle use. GASTROINTESTINAL: Abdomen soft, non-tender, nondistended. MUSCULOSKELETAL: No cyanosis. Moderate edema. SKIN: Warm and dry. Jaundice. NEURO: No focal neurological deficits. Results - Labs CBC & Chem 7: 08/31/17 04:30 08/31/17 04:30 Laboratory Results - last 24 hr 08/30/17 08/31/17 08/31/17 20:15 04:30 04:30 WBC 5.3 RBC 2.18 L Hgb 8.0 L Hct 23.3 L MCV 106.8 H MCH 36.7 H MCHC 34.4 RDW 15.9 Plt Count 29 L MPV 9.2 Prelim Diff (Auto) Slide review pending Neut % (Auto) 91.7 H Lymph % (Auto) 5.3 L [place] % (Auto) 2.5 Eos % (Auto) 0.4 Baso % (Auto) 0.1 Neut # (Auto) 4.9 Lymph # (Auto) 0.3 L [place] # (Auto) 0.1 Eos # (Auto) 0.0 Baso # (Auto) 0.0 WBC Differential Manual diff final Seg Neuts % (Manual) 83 H Band Neuts % (Manual) 9 H Lymphocytes % (Manual) 4 L Monocytes % (Manual) 4 Abs Neuts (Manual) 4.9 Differential Comment . Toxic Granulation 1+ H Platelet Estimate Low L Platelet Morphology Normal Tear Drop Cells 1+ H Acanthocytes (Spur) Occ H Sodium 142 Potassium 3.6 Chloride 111 H Carbon Dioxide 16.2 L Anion Gap 15 BUN 58 H Creatinine 1.59 H Estimated GFR 50 L POC Glucose 100 Random Glucose 90 Calcium 8.0 L Total Bilirubin 23.4 H AST 100 H ALT 67 Alkaline Phosphatase 149 H Total Protein 4.0 L Albumin 1.7 L 08/31/17 08/31/17 08:06 11:32 WBC RBC Hgb Hct MCV MCH MCHC RDW Plt Count MPV Prelim Diff (Auto) Neut % (Auto) Lymph % (Auto) [place] % (Auto) Eos % (Auto) Baso % (Auto) Neut # (Auto) Lymph # (Auto) [place] # (Auto) Eos # (Auto) Baso # (Auto) WBC Differential Seg Neuts % (Manual) Band Neuts % (Manual) Lymphocytes % (Manual) Monocytes % (Manual) Abs Neuts (Manual) Differential Comment Toxic Granulation Platelet Estimate Platelet Morphology Tear Drop Cells Acanthocytes (Spur) Sodium Potassium Chloride Carbon Dioxide Anion Gap BUN Creatinine Estimated GFR POC Glucose 98 94 Random Glucose Calcium Total Bilirubin AST ALT Alkaline Phosphatase Total Protein Albumin - Imaging Impressions Chest X-Ray 08/30/17 00:00 CONCLUSION: Worsening right base infiltrate. Assessment and Plan - Plan 31-year-old male admitted secondary to jaundice with liver failure. Monitor for any signs of bleeding. Continue to monitor CBC. Worsening of platelets today. Ammonia levels are mildly elevated at last check. Continue physical therapy and Occupational Therapy. Continue to monitor labs for liver function, hyperbilirubinemia, and coagulopathy. Acute liver failure Transaminitis Hyperbilirubinemia Hepatic coagulopathy Not improving Gastroenterology following HIDA scan report shows no obstruction Primary liver failure with coagulopathy appears present Biopsy would be nice the patient cannot be stabilizes far for biopsy of the liver. Continue to monitor LFTs and bilirubin level Continue Xifaxan, lactulose, aldactone, and steroids. Continue pentoxifylline. low sodium diet. Diabetes mellitus type 2 Follow blood sugars Insulin sliding scale Diabetic diet Microcytic anemia Risk with coagulopathy Continue to monitor H&H Dehydration Resolved Hypokalemia Monitor and replace as needed DVT prophylaxis SCDs, given bleed risk no anticoagulation Discharge Planning Not yet stable. Patient will need clinical stability prior to discharge. Family is seeking transfer to [facility].
--- NOTE | 2017-08-31 17:46 | P.PN ---
Subjective Interval history: ALERT WEAK JAUNDICED Physical Exam Vital signs: Vital Signs 08/30/17 20:00 08/30/17 23:35 08/31/17 00:00 Temperature 97.1 F L 97 F L Pulse Rate 90 85 99 H Respiratory Rate 20 20 Blood Pressure 111/53 L 137/100 H Pulse Oximetry 93 L 93 L 08/31/17 01:32 08/31/17 04:00 08/31/17 04:36 Temperature 98 F Pulse Rate 93 H 90 84 Respiratory Rate 20 Blood Pressure 99/56 L Pulse Oximetry 97 08/31/17 08:00 08/31/17 12:00 Temperature 97.7 F 97.7 F Pulse Rate 93 H 92 H Respiratory Rate 20 22 Blood Pressure 102/55 L 104/59 L Pulse Oximetry 95 93 L Intake & Output 08/30/17 08/31/17 08/31/17 18:59 06:59 18:59 Intake Total 970 / 970 250 / 250 Balance 970 / 970 250 / 250 Intake: IV 250 / 250 250 / 250 Flexbumin 25% Inj 50 ML @ 60 50 / 50 50 / 50 mls/hr IV.SIG Q12H OLY Rx#: [id number] Maxipime Inj 2,000 MG In NS Inj 100 / 100 100 / 100 100 ML @ 200 mls/hr IV.SIG Q12H OLY Rx#:[id number] Teflaro Inj 600 MG In NS Inj 100 / 100 100 / 100 100 ML @ 100 mls/hr IV.SIG Q12H OLY Rx#:[id number] Oral 720 / 720 Other: # Voids 2 # Urine Diapers 2 # Bowel Movements 3 Narrative: GENERAL: JAUNDICED SKIN: Warm and dry. HEAD: Atraumatic. Normocephalic. EYES: Pupils equal and round. No scleral icterus. No injection or drainage. ENT: No nasal bleeding or discharge. Mucous membranes pink and moist. NECK: Trachea midline. No JVD. CARDIOVASCULAR: Regular rate and rhythm. RESPIRATORY: No accessory muscle use. Clear to auscultation. Breath sounds equal bilaterally. GASTROINTESTINAL: Abdomen soft, non-tender, nondistended. Hepatic and splenic margins not palpable. MUSCULOSKELETAL: Extremities without clubbing, cyanosis, or edema. No obvious deformities. NEUROLOGICAL: Awake and alert. No obvious cranial nerve deficits. Motor grossly within normal limits. Five out of 5 muscle strength in the arms and legs. Normal speech. PSYCHIATRIC: Appropriate mood and affect; insight and judgment normal. Results - Labs CBC & Chem 7: 08/31/17 04:30 08/31/17 04:30 Laboratory Results - last 24 hr 08/30/17 08/31/17 08/31/17 20:15 04:30 04:30 WBC 5.3 RBC 2.18 L Hgb 8.0 L Hct 23.3 L MCV 106.8 H MCH 36.7 H MCHC 34.4 RDW 15.9 Plt Count 29 L MPV 9.2 Prelim Diff (Auto) Slide review pending Neut % (Auto) 91.7 H Lymph % (Auto) 5.3 L [place] % (Auto) 2.5 Eos % (Auto) 0.4 Baso % (Auto) 0.1 Neut # (Auto) 4.9 Lymph # (Auto) 0.3 L [place] # (Auto) 0.1 Eos # (Auto) 0.0 Baso # (Auto) 0.0 WBC Differential Manual diff final Seg Neuts % (Manual) 83 H Band Neuts % (Manual) 9 H Lymphocytes % (Manual) 4 L Monocytes % (Manual) 4 Abs Neuts (Manual) 4.9 Differential Comment . Toxic Granulation 1+ H Platelet Estimate Low L Platelet Morphology Normal Tear Drop Cells 1+ H Acanthocytes (Spur) Occ H Sodium 142 Potassium 3.6 Chloride 111 H Carbon Dioxide 16.2 L Anion Gap 15 BUN 58 H Creatinine 1.59 H Estimated GFR 50 L POC Glucose 100 Random Glucose 90 Calcium 8.0 L Total Bilirubin 23.4 H AST 100 H ALT 67 Alkaline Phosphatase 149 H Total Protein 4.0 L Albumin 1.7 L 08/31/17 08/31/17 08:06 11:32 WBC RBC Hgb Hct MCV MCH MCHC RDW Plt Count MPV Prelim Diff (Auto) Neut % (Auto) Lymph % (Auto) [place] % (Auto) Eos % (Auto) Baso % (Auto) Neut # (Auto) Lymph # (Auto) [place] # (Auto) Eos # (Auto) Baso # (Auto) WBC Differential Seg Neuts % (Manual) Band Neuts % (Manual) Lymphocytes % (Manual) Monocytes % (Manual) Abs Neuts (Manual) Differential Comment Toxic Granulation Platelet Estimate Platelet Morphology Tear Drop Cells Acanthocytes (Spur) Sodium Potassium Chloride Carbon Dioxide Anion Gap BUN Creatinine Estimated GFR POC Glucose 98 94 Random Glucose Calcium Total Bilirubin AST ALT Alkaline Phosphatase Total Protein Albumin Assessment and Plan - Plan HEPATIC FAILURE PLAN F/U CXRAY Code Status: GENERAL: JAUNDICED SKIN: Warm and dry. HEAD: Atraumatic. Normocephalic. EYES: Pupils equal and round. No scleral icterus. No injection or drainage. ENT: No nasal bleeding or discharge. Mucous membranes pink and moist. NECK: Trachea midline. No JVD. CARDIOVASCULAR: Regular rate and rhythm. RESPIRATORY: No accessory muscle use. Clear to auscultation. Breath sounds equal bilaterally. GASTROINTESTINAL: Abdomen soft, non-tender, nondistended. Hepatic and splenic margins not palpable. MUSCULOSKELETAL: Extremities without clubbing, cyanosis, or edema. No obvious deformities. NEUROLOGICAL: Awake and alert. No obvious cranial nerve deficits. Motor grossly within normal limits. Five out of 5 muscle strength in the arms and legs. Normal speech. PSYCHIATRIC: Appropriate mood and affect; insight and judgment normal.
[2017-08-31] MEDS: Dextrose 5%/NaCl 0.9% Inj 1,000 ML IV.CONT SCH (18:09)
[2017-09-01] MEDS: Pentoxifylline 400 MG Controlled Release Tablet PO SCH ×4 (01:05→16:55)
[2017-09-01] MEDS: Cefepime Inj 2,000 MG in Sodium Chlor 0.9% Inj 100 ML IV.SIG SCH ×2 (01:06→14:34)
[2017-09-01 09:51] LABS: INR 3.8 Ratio
[2017-09-01] MEDS: Insulin NovoLOG Aspart Correctional Sugar Inj SQ SCH ×4 (10:03→22:22)
[2017-09-01] MEDS: rifAXIMin 550 MG Tablet PO SCH ×3 (10:05→22:29)
[2017-09-01] MEDS: MethylPREDNISolone Sod Succinate Inj 40 MG/ML Vial IV.PUSH SCH (10:05)
[2017-09-01] MEDS: Famotidine 20 MG Tablet PO SCH ×3 (10:05→22:29)
[2017-09-01] MEDS: guaiFENesin 600 MG ER Tablet PO SCH ×3 (10:06→22:28)
[2017-09-01] MEDS: Potassium Bicarbonate 25 MEQ Effervescent Tablet PO SCH ×3 (10:07→22:27)
[2017-09-01] MEDS: Albumin Human 25% Inj 50 ML IV.SIG SCH ×2 (10:07→22:18)
[2017-09-01 10:08] LABS: Alanine Aminotransferase 72 U/L (12-78); Albumin 1.8 g/dL (3.4-5.0); Alkaline Phosphatase 148 U/L (45-117); Anion Gap 15 meq/L (5-15); Aspartate Aminotransferase 131 U/L (15-37); Blood Urea Nitrogen 72 mg/dL (7-18); Calcium 7.7 mg/dL (8.5-10.1); Carbon Dioxide 16.7 meq/L (21.0-32.0); Chloride 109 meq/L (98-107); Glomerular Filtration Rate 38 mL/min (>89); Glucose,Random 154 mg/dL (74-106); Sodium 141 meq/L (136-145)
[2017-09-01] MEDS: Spironolactone 25 MG Tablet PO SCH ×2 (10:19→11:35)
[2017-09-01 10:43] LABS: Baso % (Auto) 0.2 % (0.0-2.0); Eos # (Auto) 0.2 th/mm3 (0.0-0.4); Eos % (Auto) 2.6 % (0.0-4.0); Hematocrit 22.5 % (39.0-51.0); Hemoglobin 7.8 gm/dL (13.0-17.0); Lymph # (Auto) 0.4 th/mm3 (1.0-4.8); Lymph % (Auto) 6.5 % (9.0-44.0); Mean Corpuscular HGB Conc 34.7 % (32.0-36.0); Mean Corpuscular Volume 106.7 fL (80.0-100.0); Mean Platelet Volume 9.7 fL (7.0-11.0); Mono # (Auto) 0.2 th/mm3 (0.0-0.9); Mono % (Auto) 3.2 % (0.0-8.0); Neut % (Auto) 87.5 % (16.0-70.0); Platelet Count 29 th/mm3 (150-450); Red Blood Count 2.11 mil/mm3 (4.50-5.90); White Blood Count 5.7 th/mm3 (4.0-11.0)
--- NOTE | 2017-09-01 11:41 | P.PNIM ---
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, no complaints, poor historian, discussed with family Physical Exam Vital signs: Vital Signs 08/31/17 12:00 08/31/17 16:00 08/31/17 20:03 Temperature 97.7 F 97.2 F L Pulse Rate 92 H 94 H Respiratory Rate 22 19 Blood Pressure 104/59 L 96/54 L Pulse Oximetry 93 L 96 08/31/17 21:32 08/31/17 23:56 09/01/17 00:00 Temperature 97.8 F 97.4 F L Pulse Rate 92 H 91 H 88 Respiratory Rate 17 19 Blood Pressure 104/58 L 98/52 L Pulse Oximetry 94 L 93 L 09/01/17 04:00 09/01/17 04:04 Temperature 97.5 F L Pulse Rate 94 H 92 H Respiratory Rate 19 Blood Pressure 101/51 L Pulse Oximetry 94 L Intake & Output 08/31/17 09/01/17 09/01/17 18:59 06:59 18:59 Intake Total 150 / 150 250 / 250 Balance 150 / 150 250 / 250 Weight 96.3 kg Intake: IV 150 / 150 250 / 250 Flexbumin 25% Inj 50 ML @ 60 50 / 50 50 / 50 mls/hr IV.SIG Q12H OLY Rx#: [id number] Maxipime Inj 2,000 MG In NS Inj 100 / 100 100 ML @ 200 mls/hr IV.SIG Q12H OLY Rx#:[id number] Teflaro Inj 600 MG In NS Inj 100 / 100 100 / 100 100 ML @ 100 mls/hr IV.SIG Q12H OLY Rx#:[id number] Oral 0 / 0 Other: # Incontinent Voids 2 Narrative: GENERAL: Sleepy ,arousable, not in distress HEAD: Normocephalic. NECK: Supple, trachea midline. No lymphadenopathy. EYES: No scleral icterus. No injection or drainage. Jaundice sclera CARDIOVASCULAR: Regular rate and rhythm without murmurs, gallops, or rubs. RESPIRATORY: Breath sounds equal bilaterally. No accessory muscle use. GASTROINTESTINAL: Abdomen soft, non-tender, nondistended. MUSCULOSKELETAL: No cyanosis. Moderate edema. SKIN: Warm and dry. Jaundice. NEURO: No focal neurological deficits. Results - Labs CBC & Chem 7: 09/01/17 07:40 09/01/17 07:40 Laboratory Results - last 24 hr 08/31/17 08/31/17 09/01/17 17:41 20:37 07:40 WBC 5.7 RBC 2.11 L Hgb 7.8 L Hct 22.5 L MCV 106.7 H MCH 37.0 H MCHC 34.7 RDW 16.0 Plt Count 29 L MPV 9.7 Prelim Diff (Auto) Slide review pending Neut % (Auto) 87.5 H Lymph % (Auto) 6.5 L [place] % (Auto) 3.2 Eos % (Auto) 2.6 Baso % (Auto) 0.2 Neut # (Auto) 5.0 Lymph # (Auto) 0.4 L [place] # (Auto) 0.2 Eos # (Auto) 0.2 Baso # (Auto) 0.0 Differential Comment . PT INR Sodium Potassium Chloride Carbon Dioxide Anion Gap BUN Creatinine Estimated GFR POC Glucose 122 H 146 H Random Glucose Calcium Total Bilirubin AST ALT Alkaline Phosphatase Total Protein Albumin 09/01/17 09/01/17 09/01/17 07:40 07:48 08:38 WBC RBC Hgb Hct MCV MCH MCHC RDW Plt Count MPV Prelim Diff (Auto) Neut % (Auto) Lymph % (Auto) [place] % (Auto) Eos % (Auto) Baso % (Auto) Neut # (Auto) Lymph # (Auto) [place] # (Auto) Eos # (Auto) Baso # (Auto) Differential Comment PT 38.0 H INR 3.8 Sodium 141 Potassium 4.0 Chloride 109 H Carbon Dioxide 16.7 L Anion Gap 15 BUN 72 H Creatinine 2.01 H Estimated GFR 38 L POC Glucose 211 H Random Glucose 154 H Calcium 7.7 L Total Bilirubin 23.4 H AST 131 H ALT 72 Alkaline Phosphatase 148 H Total Protein 4.0 L Albumin 1.8 L Assessment and Plan - Plan 31-year-old male admitted secondary to jaundice with liver failure. Monitor for any signs of bleeding. Continue to monitor CBC. Worsening of platelets today. Ammonia levels are mildly elevated at last check. Continue physical therapy and Occupational Therapy. Continue to monitor labs for liver function, hyperbilirubinemia, and coagulopathy. Acute liver failure Transaminitis Hyperbilirubinemia Hepatic coagulopathy Gastroenterology following HIDA scan report shows no obstruction Primary liver failure with coagulopathy, thrombocytopenia Biopsy would be useful but the patient cannot be stabilized far for biopsy of the liver. Continue to monitor LFTs and bilirubin level Continue Xifaxan, lactulose, aldactone, and steroids. Continue pentoxifylline. Family would like to transfer to [facility], discussed with Dr. Mandel from [facility] and Dr. Hung, hepatology. They will accept the patient but Dr. Hung is not sure if there is anything else that she can offer. Discussed with griselda Park, she will communicate this to Mary. Discussed with family today. Diabetes mellitus type 2 Follow blood sugars Insulin sliding scale Diabetic diet Microcytic anemia, thrombocytopenia Risk with coagulopathy Continue to monitor H&H Renal failure-creatinine stable but not back to normal, monitor, check BMP tomorrow. Patient has failed his swallow evaluation. He is NPO and D5 NS is started for hydration. Hypokalemia Monitor and replace as needed DVT prophylaxis SCDs, given bleed risk no anticoagulation Discharge Planning Transfer the patient to [facility], already discussed with Dr. Mandel , the hospitalist who will accept the patient. Transfer center at [facility] is aware, body specialist Dr. Hung is aware and accepting the patient. Please fax the face sheet to [phone]. Transfer center number is [phone]
[2017-09-01 11:53] LABS: Lymphocytes 1 % (9-44); Monocytes 2 % (0-8); Toxic Granulation 2+; Toxic Vacuolation Present
[2017-09-01 11:57] LABS: Acanthocytes Occ; Tear Drop Cells 1+
[2017-09-01] MEDS: SODIUM CHLOR 0.9% IV.SIG SCH (12:04)
[2017-09-01] MEDS: CEFTAROLINE IV.SIG SCH (12:04)
--- NOTE | 2017-09-01 12:12 | US ---
EXAM DATE: 09/01/2017 12:06 PM EDT AGE/SEX: 32 years / Male INDICATIONS: Right pleural effusion. CLINICAL DATA: This is the patient's initial encounter. Patient reports that signs and symptoms have been present for 1 day and indicates a pain score of Nonresponsive. MEDICAL/SURGICAL HISTORY: . Hypertension. Diabetes. Depression. Peripheral neuropathy. Gastropa resis. None. COMPARISON: [facility] [place], US ABDOMEN - GALLBLADDER, 08/01/2017. . MEASUREMENTS: Skin To Parietal Pleura:__Inadequate fluid cm Skin To Max Safe Depth:__Inadequate fluid cm Estimated Fluid Volume:__Inadequate fluid cc Fluid Composition:__inadequate fluid FINDINGS: None. CONCLUSION: 1. Inadequate fluid for paracentesis Electronically signed by: Sherwin Denton MD 09/01/2017 12:11 PM EDT
--- NOTE | 2017-09-01 15:43 | P.PNID ---
Subjective Remarks: Mr. Martinez is a 32-year-old male with a known medical history including insulin-requiring diabetes mellitus; diabetic neuropathy; childhood asthma; and alcohol abuse who presented to the emergency department on 08/01/2017, Patient is not forthcoming of history and infact was avoiding talking to me. He reportedly was complaining primarily of progressive weakness over the prior 2 months accompanied by more recent jaundice and tea colored urine. At time of presentation he denied nausea, vomiting, acid reflux, dyspepsia, abdominal pain , or blood per rectum. He also has not noted any abdominal swelling. The patient had reported an 85 pound weight loss over the past 4 years some of which is intentional. Vital signs on arrival to the ED were T 98.6; pulse 109; respiratory rate 19; blood pressure 111/68; pulse oximetry 97% on room air. Patient was found to be extremely jaundiced. GI has been involved and there is a diagnosis of Acute Alcoholic hepatitis as top differential. He was also found to be coagulopathic and hematology is involved. Palliative care has been following the patient and patient is full code and Mom is health care surrogate. Other significant findings include an abdominal ultrasound showed enlarged fatty infiltrated liver; sludge in the gallbladder. No perceptible flow in the main portal vein and portal vein thrombosis was not excluded. ID was consulted for evaluation and Mment of HCAP bilateral pneumonia in setting of liver and kidney failure. Overnight events reviewed with RN No fevers No rash No diarrhea US chest with not much fluid. CXR with atelectasis. Antibiotics: Cefepime IV Teflaro IV Lines: Lines ok Past Medical History: Diabetic mellitus Type 2 Neuropathy Alcohol abuse Hypertension Gastroparesis Depression Allergies/Adverse Reactions: Allergies No Known Allergies Allergy (Unknown, Uncoded 08/29/17 11:06) UNKNOWN Objective Vital Signs 08/31/17 16:00 08/31/17 20:03 08/31/17 21:32 Temperature 97.2 F L 97.8 F Pulse Rate 94 H 92 H Respiratory Rate 19 17 Blood Pressure 96/54 L 104/58 L Pulse Oximetry 96 94 L 08/31/17 23:56 09/01/17 00:00 09/01/17 04:00 Temperature 97.4 F L 97.5 F L Pulse Rate 91 H 88 94 H Respiratory Rate 19 19 Blood Pressure 98/52 L 101/51 L Pulse Oximetry 93 L 94 L 09/01/17 04:04 Temperature Pulse Rate 92 H Respiratory Rate Blood Pressure Pulse Oximetry Intake & Output 08/31/17 09/01/17 09/01/17 18:59 06:59 18:59 Intake Total 150 / 150 250 / 250 Balance 150 / 150 250 / 250 Weight 96.3 kg Intake: IV 150 / 150 250 / 250 Flexbumin 25% Inj 50 ML @ 60 50 / 50 50 / 50 mls/hr IV.SIG Q12H OLY Rx#: [id number] Maxipime Inj 2,000 MG In NS Inj 100 / 100 100 ML @ 200 mls/hr IV.SIG Q12H OLY Rx#:[id number] Teflaro Inj 600 MG In NS Inj 100 / 100 100 / 100 100 ML @ 100 mls/hr IV.SIG Q12H OLY Rx#:[id number] Oral 0 / 0 Other: # Incontinent Voids 2 Lab - Hematology Results 08/31/17 09/01/17 04:30 07:40 WBC 5.3 5.7 RBC 2.18 L 2.11 L Hgb 8.0 L 7.8 L Hct 23.3 L 22.5 L MCV 106.8 H 106.7 H MCH 36.7 H 37.0 H MCHC 34.4 34.7 RDW 15.9 16.0 Plt Count 29 L 29 L MPV 9.2 9.7 Prelim Diff (Auto) Slide review pending Slide review pending Neut % (Auto) 91.7 H 87.5 H Lymph % (Auto) 5.3 L 6.5 L [place] % (Auto) 2.5 3.2 Eos % (Auto) 0.4 2.6 Baso % (Auto) 0.1 0.2 Neut # (Auto) 4.9 5.0 Lymph # (Auto) 0.3 L 0.4 L [place] # (Auto) 0.1 0.2 Eos # (Auto) 0.0 0.2 Baso # (Auto) 0.0 0.0 WBC Differential Manual diff final Manual diff final Seg Neuts % (Manual) 83 H 90 H Band Neuts % (Manual) 9 H 7 H Lymphocytes % (Manual) 4 L 1 L Monocytes % (Manual) 4 2 Abs Neuts (Manual) 4.9 5.5 Differential Comment . . Toxic Granulation 1+ H 2+ H Toxic Vacuolation Present H Platelet Estimate Low L Low L Platelet Morphology Normal Enlarged H Tear Drop Cells 1+ H 1+ H Acanthocytes (Spur) Occ H Occ H Keratocytes Occ H Lab - Chemistry Results 08/30/17 08/31/17 08/31/17 20:15 04:30 08:06 Sodium 142 Potassium 3.6 Chloride 111 H Carbon Dioxide 16.2 L Anion Gap 15 BUN 58 H Creatinine 1.59 H Estimated GFR 50 L POC Glucose 100 98 Random Glucose 90 Calcium 8.0 L Total Bilirubin 23.4 H AST 100 H ALT 67 Alkaline Phosphatase 149 H Total Protein 4.0 L Albumin 1.7 L 08/31/17 08/31/17 08/31/17 11:32 17:41 20:37 Sodium Potassium Chloride Carbon Dioxide Anion Gap BUN Creatinine Estimated GFR POC Glucose 94 122 H 146 H Random Glucose Calcium Total Bilirubin AST ALT Alkaline Phosphatase Total Protein Albumin 09/01/17 09/01/17 09/01/17 07:40 08:38 12:52 Sodium 141 Potassium 4.0 Chloride 109 H Carbon Dioxide 16.7 L Anion Gap 15 BUN 72 H Creatinine 2.01 H Estimated GFR 38 L POC Glucose 211 H 161 H Random Glucose 154 H Calcium 7.7 L Total Bilirubin 23.4 H AST 131 H ALT 72 Alkaline Phosphatase 148 H Total Protein 4.0 L Albumin 1.8 L Imaging: ITS Impressions Chest X-Ray 08/30/17 00:00 CONCLUSION: Worsening right base infiltrate. Chest Ultrasound 09/01/17 00:00 CONCLUSION: 1. Inadequate fluid for paracentesis Physical Exam: GENERAL: Acutely ill appearing male patient, in no apparent distress. SKIN: No rashes, ecchymoses or lesions. Cool and dry. HEAD: Atraumatic. Normocephalic. No temporal or scalp tenderness. EYES: Pupils equal round and reactive. Jaundiced skin and sclera. ENT: Nose without bleeding, purulent drainage or septal hematoma. Throat without erythema, tonsillar hypertrophy or exudate. Uvula midline. Airway patent. NECK: Trachea midline. Supple, nontender, no meningeal signs. CARDIOVASCULAR: HS audible. RESPIRATORY: AE decreased in bases. GASTROINTESTINAL: Abdomen soft, non-tender, nondistended. MUSCULOSKELETAL: Extremities without clubbing, cyanosis. 2-3 pedal edema. Scrotal edema. NEUROLOGICAL: appears more somnolent today. Psych flat affect IV line sites with no e.o infection. Assessment and Plan - Plan Bilateral pneumonia ? HCAP possible micro aspiration during periods of altered mental status. Atelectasis on CXR. US chest negative. Acute alcoholic hepatitis Ascites Diabetes with DM Neuropathy Recs DC Cefepime IV DC Teflaro IV Follow clinically. Observe off antibiotics as no signs of infection. jasmin Fitzgerald: arranging for bed for transfer to [facility] in [place]. jasmin patients mom and his aunt in room plus Alva who is RN over phone: Since WBC normal, No fever, CXR with atelectasis, US chest with no fluid will stop antibiotics as treated long enough. Risk of resistant organisms and Cdiff plus renal and hepatic side effects with continuing antibiotics. jasmin RN Will sign off please call back if any change in clinical condition or questions.
--- NOTE | 2017-09-01 16:46 | P.PNPAL ---
Reason for Visit Reason for visit: fatigue, ascites, confusion, edema Subjective Subjective/Interval History: Patient seen today to follow-up on symptoms of fatigue, ascites, confusion, edema. Patient remains fatigued, minimally participating in physical therapy. He was to fatigued and lethargic to be able to participate in swallowing evaluation today. He is lying in bed with minimal spontaneous movement. He frequently falls asleep mid conversation. He has difficulty holding his eyes open. He has moderate ascites, however his INR is 3.8 today and remains too high for any invasive procedures to include paracentesis or liver biopsy. He denies any discomfort with this, however he is confused. He does not evidence any grimacing or wincing with abdominal palpation. His abdomen is distended but still soft without tenseness. He remains confused. He does not answer direct questions. Family is at bedside and state that he is responding to them, however there is no evidence of this during my evaluation. He mumbles with each exhalation but no words are audible. He remains with dependent edema, mostly pedal. No edema is seen in the lower legs. Edema is pitting 1-2+, improved from prior with diuretics. . Family/Friend Interactions: Family is at bedside to include his mother and his aunt. They state that Dr. Raquel Carey from [facility] is willing to accept the patient for workup and treatment of liver failure. Telephone number provided was [phone] for direct physician contact. They also provided the number for the transfer center as . Dr. Estevez contacted Dr. carey who confirms that she is willing to accept the patient, however after reviewing the clinical indicators and specialists notes, she agreed that they would likely be unable to provide any further assistance in this case. While willing to accept the patient, they wished to make sure that the family's expectations were realistic regarding the patient's likely poor prognosis. This was communicated to the mother, Lindsay, who understands that her son is likely to , but is receiving a lot of pressure from the remaining family to transfer him to [place]. It is her opinion that if her son is going to either at [place] or at [facility], that it would be better for him to do so in [place] where he has a lot of family. . Objective Vital Signs: Vital Signs 08/31/17 20:03 08/31/17 21:32 08/31/17 23:56 Temperature 97.8 F Pulse Rate 94 H 92 H 91 H Respiratory Rate 17 Blood Pressure 104/58 L Pulse Oximetry 94 L 09/01/17 00:00 09/01/17 04:00 09/01/17 04:04 Temperature 97.4 F L 97.5 F L Pulse Rate 88 94 H 92 H Respiratory Rate 19 19 Blood Pressure 98/52 L 101/51 L Pulse Oximetry 93 L 94 L 09/01/17 08:00 09/01/17 12:00 09/01/17 16:00 Temperature 98.0 F 97.4 F L 98.1 F Pulse Rate 90 86 Respiratory Rate 20 22 Blood Pressure 95/47 L 96/55 L 95/56 L Pulse Oximetry 94 L 94 L Intake & Output 08/31/17 09/01/17 09/01/17 18:59 06:59 18:59 Intake Total 150 / 150 250 / 250 Balance 150 / 150 250 / 250 Weight 212 lb 4.882 oz Intake: IV 150 / 150 250 / 250 Flexbumin 25% Inj 50 ML @ 60 50 / 50 50 / 50 mls/hr IV.SIG Q12H OLY Rx#: [id number] Maxipime Inj 2,000 MG In NS Inj 100 / 100 100 ML @ 200 mls/hr IV.SIG Q12H OLY Rx#:[id number] Teflaro Inj 600 MG In NS Inj 100 / 100 100 / 100 100 ML @ 100 mls/hr IV.SIG Q12H OLY Rx#:[id number] Oral 0 / 0 Other: # Incontinent Voids 2 Physical Exam: CONSTITUTIONAL/GENERAL: This is an adequately nourished patient, in no apparent distress. Sleepy. SKIN: Jaundiced. No rashes, or lesions. No wounds seen anteriorly. Skin temperature appropriate. Not diaphoretic. EYES: Pupils equal and round . Extraocular motions intact. Scleral icterus present. No injection or drainage. Fundi not examined. ENT: Hearing grossly normal. Nose without bleeding or purulent drainage. patchy white exudates visualized in pharynx NECK: Trachea midline. Supple CARDIOVASCULAR: RRR and rhythm without murmurs, gallops, or rubs. No JVD. RESPIRATORY/CHEST: Symmetric, unlabored respirations. Wheezes in left lower lobe. GASTROINTESTINAL: Abdomen distended, soft, liver border palpable 1.5-2 cm below right rib margin, hypoactive bowel sounds. MUSCULOSKELETAL: Extremities without clubbing, cyanosis. +2 pitting pedal edema No joint tenderness or effusion noted. NEUROLOGICAL: Mild lethargy. Mumbling under his breath, not responding to direct questions. PSYCHIATRIC: Flat affect. Confused. Diagnostic Tests Laboratory: Laboratory Results - last 72 hr 08/28/17 08/28/17 08/28/17 11:48 11:48 11:48 WBC 7.1 RBC 2.36 L Hgb 8.7 L Hct 25.4 L MCV 107.7 H MCH 36.8 H MCHC 34.2 RDW 15.8 Plt Count 48 L D MPV 10.0 Prelim Diff (Auto) Neut % (Auto) 94.8 H Lymph % (Auto) 1.0 L [place] % (Auto) 2.9 Eos % (Auto) 0.0 Baso % (Auto) 1.3 Neut # (Auto) 6.7 Lymph # (Auto) 0.1 L [place] # (Auto) 0.2 Eos # (Auto) 0.0 Baso # (Auto) 0.1 CBC Comment AUTO DIFF WBC Differential Total Counted Neutrophils % (Manual) Seg Neuts % (Manual) Band Neutrophils % Band Neuts % (Manual) Lymphocytes % Lymphocytes % (Manual) Monocytes % Monocytes % (Manual) Neutrophils # (Manual) Abs Neuts (Manual) Differential Comment AUTO DIFF CONFIRMED Toxic Granulation Toxic Vacuolation Platelet Estimate Platelet Morphology Plt Morphology Comment Tear Drop Cells Acanthocytes (Spur) Keratocytes PT 40.0 H INR 4.0 APTT 47.4 H Sodium 141 Potassium 3.6 Chloride 110 H Carbon Dioxide 17.9 L Anion Gap 13 BUN 45 H Creatinine 1.37 H Estimated GFR 60 L POC Glucose Random Glucose 113 H Calcium 7.7 L Magnesium 1.9 Total Bilirubin 24.1 H AST 128 H ALT 72 Alkaline Phosphatase 183 H Ammonia Total Protein 4.3 L Albumin 2.0 L 08/29/17 08/29/17 08/29/17 07:19 07:19 07:19 WBC 7.0 RBC 2.48 L Hgb 9.1 L Hct 26.5 L MCV 106.8 H MCH 36.5 H MCHC 34.2 RDW 15.9 Plt Count 48 L MPV 10.2 Prelim Diff (Auto) Neut % (Auto) 91.7 H Lymph % (Auto) 6.3 L [place] % (Auto) 1.9 Eos % (Auto) 0.1 Baso % (Auto) 0.0 Neut # (Auto) 6.5 Lymph # (Auto) 0.4 L [place] # (Auto) 0.1 Eos # (Auto) 0.0 Baso # (Auto) 0.0 CBC Comment AUTO DIFF WBC Differential Total Counted 100 Neutrophils % (Manual) 79 H Seg Neuts % (Manual) Band Neutrophils % 10 H Band Neuts % (Manual) Lymphocytes % 9 Lymphocytes % (Manual) Monocytes % 2 Monocytes % (Manual) Neutrophils # (Manual) 6.2 Abs Neuts (Manual) Differential Comment FINAL DIFF MANUAL Toxic Granulation 1+ H Toxic Vacuolation Platelet Estimate LOW L Platelet Morphology Plt Morphology Comment ENLARGED H Tear Drop Cells 1+ H Acanthocytes (Spur) Keratocytes PT 37.2 H INR 3.7 APTT 48.6 H Sodium 141 Potassium 3.4 L Chloride 110 H Carbon Dioxide 16.4 L Anion Gap 15 BUN 51 H Creatinine 1.52 H Estimated GFR 53 L POC Glucose Random Glucose 152 H Calcium 7.8 L Magnesium Total Bilirubin 24.4 H AST 139 H ALT 80 H Alkaline Phosphatase 179 H Ammonia Total Protein 4.2 L Albumin 1.8 L 08/30/17 08/30/17 08/30/17 06:00 06:00 06:00 WBC RBC Hgb Hct MCV MCH MCHC RDW Plt Count MPV Prelim Diff (Auto) Neut % (Auto) Lymph % (Auto) [place] % (Auto) Eos % (Auto) Baso % (Auto) Neut # (Auto) Lymph # (Auto) [place] # (Auto) Eos # (Auto) Baso # (Auto) CBC Comment WBC Differential Total Counted Neutrophils % (Manual) Seg Neuts % (Manual) Band Neutrophils % Band Neuts % (Manual) Lymphocytes % Lymphocytes % (Manual) Monocytes % Monocytes % (Manual) Neutrophils # (Manual) Abs Neuts (Manual) Differential Comment Toxic Granulation Toxic Vacuolation Platelet Estimate Platelet Morphology Plt Morphology Comment Tear Drop Cells Acanthocytes (Spur) Keratocytes PT 42.5 H INR 4.2 APTT 53.9 H Sodium 142 Potassium 3.7 Chloride 110 H Carbon Dioxide 18.3 L Anion Gap 14 BUN 53 H Creatinine 1.58 H Estimated GFR 51 L POC Glucose Random Glucose 121 H Calcium 7.9 L Magnesium Total Bilirubin 23.5 H AST 108 H ALT 73 Alkaline Phosphatase 163 H Ammonia 47 H Total Protein 4.1 L Albumin 1.9 L 08/30/17 08/30/17 08/30/17 06:00 07:42 11:55 WBC 6.7 RBC 2.37 L Hgb 8.7 L Hct 25.5 L MCV 107.6 H MCH 36.5 H MCHC 34.0 RDW 15.7 Plt Count 38 L MPV 9.8 Prelim Diff (Auto) Slide review pending Neut % (Auto) 91.8 H Lymph % (Auto) 5.5 L [place] % (Auto) 2.4 Eos % (Auto) 0.0 Baso % (Auto) 0.3 Neut # (Auto) 6.2 Lymph # (Auto) 0.4 L [place] # (Auto) 0.2 Eos # (Auto) 0.0 Baso # (Auto) 0.0 CBC Comment WBC Differential Manual diff final Total Counted Neutrophils % (Manual) Seg Neuts % (Manual) 86 H Band Neutrophils % Band Neuts % (Manual) 8 H Lymphocytes % Lymphocytes % (Manual) 2 L Monocytes % Monocytes % (Manual) 4 Neutrophils # (Manual) Abs Neuts (Manual) 6.3 Differential Comment . Toxic Granulation 1+ H Toxic Vacuolation Platelet Estimate Low L Platelet Morphology Normal Plt Morphology Comment Tear Drop Cells 1+ H Acanthocytes (Spur) 1+ H Keratocytes Occ H PT INR APTT Sodium Potassium Chloride Carbon Dioxide Anion Gap BUN Creatinine Estimated GFR POC Glucose 110 86 Random Glucose Calcium Magnesium Total Bilirubin AST ALT Alkaline Phosphatase Ammonia Total Protein Albumin 08/30/17 08/31/17 08/31/17 20:15 04:30 04:30 WBC 5.3 RBC 2.18 L Hgb 8.0 L Hct 23.3 L MCV 106.8 H MCH 36.7 H MCHC 34.4 RDW 15.9 Plt Count 29 L MPV 9.2 Prelim Diff (Auto) Slide review pending Neut % (Auto) 91.7 H Lymph % (Auto) 5.3 L [place] % (Auto) 2.5 Eos % (Auto) 0.4 Baso % (Auto) 0.1 Neut # (Auto) 4.9 Lymph # (Auto) 0.3 L [place] # (Auto) 0.1 Eos # (Auto) 0.0 Baso # (Auto) 0.0 CBC Comment WBC Differential Manual diff final Total Counted Neutrophils % (Manual) Seg Neuts % (Manual) 83 H Band Neutrophils % Band Neuts % (Manual) 9 H Lymphocytes % Lymphocytes % (Manual) 4 L Monocytes % Monocytes % (Manual) 4 Neutrophils # (Manual) Abs Neuts (Manual) 4.9 Differential Comment . Toxic Granulation 1+ H Toxic Vacuolation Platelet Estimate Low L Platelet Morphology Normal Plt Morphology Comment Tear Drop Cells 1+ H Acanthocytes (Spur) Occ H Keratocytes PT INR APTT Sodium 142 Potassium 3.6 Chloride 111 H Carbon Dioxide 16.2 L Anion Gap 15 BUN 58 H Creatinine 1.59 H Estimated GFR 50 L POC Glucose 100 Random Glucose 90 Calcium 8.0 L Magnesium Total Bilirubin 23.4 H AST 100 H ALT 67 Alkaline Phosphatase 149 H Ammonia Total Protein 4.0 L Albumin 1.7 L 08/31/17 08/31/17 08/31/17 08:06 11:32 17:41 WBC RBC Hgb Hct MCV MCH MCHC RDW Plt Count MPV Prelim Diff (Auto) Neut % (Auto) Lymph % (Auto) [place] % (Auto) Eos % (Auto) Baso % (Auto) Neut # (Auto) Lymph # (Auto) [place] # (Auto) Eos # (Auto) Baso # (Auto) CBC Comment WBC Differential Total Counted Neutrophils % (Manual) Seg Neuts % (Manual) Band Neutrophils % Band Neuts % (Manual) Lymphocytes % Lymphocytes % (Manual) Monocytes % Monocytes % (Manual) Neutrophils # (Manual) Abs Neuts (Manual) Differential Comment Toxic Granulation Toxic Vacuolation Platelet Estimate Platelet Morphology Plt Morphology Comment Tear Drop Cells Acanthocytes (Spur) Keratocytes PT INR APTT Sodium Potassium Chloride Carbon Dioxide Anion Gap BUN Creatinine Estimated GFR POC Glucose 98 94 122 H Random Glucose Calcium Magnesium Total Bilirubin AST ALT Alkaline Phosphatase Ammonia Total Protein Albumin 08/31/17 09/01/17 09/01/17 20:37 07:40 07:40 WBC 5.7 RBC 2.11 L Hgb 7.8 L Hct 22.5 L MCV 106.7 H MCH 37.0 H MCHC 34.7 RDW 16.0 Plt Count 29 L MPV 9.7 Prelim Diff (Auto) Slide review pending Neut % (Auto) 87.5 H Lymph % (Auto) 6.5 L [place] % (Auto) 3.2 Eos % (Auto) 2.6 Baso % (Auto) 0.2 Neut # (Auto) 5.0 Lymph # (Auto) 0.4 L [place] # (Auto) 0.2 Eos # (Auto) 0.2 Baso # (Auto) 0.0 CBC Comment WBC Differential Manual diff final Total Counted Neutrophils % (Manual) Seg Neuts % (Manual) 90 H Band Neutrophils % Band Neuts % (Manual) 7 H Lymphocytes % Lymphocytes % (Manual) 1 L Monocytes % Monocytes % (Manual) 2 Neutrophils # (Manual) Abs Neuts (Manual) 5.5 Differential Comment . Toxic Granulation 2+ H Toxic Vacuolation Present H Platelet Estimate Low L Platelet Morphology Enlarged H Plt Morphology Comment Tear Drop Cells 1+ H Acanthocytes (Spur) Occ H Keratocytes Occ H PT INR APTT Sodium 141 Potassium 4.0 Chloride 109 H Carbon Dioxide 16.7 L Anion Gap 15 BUN 72 H Creatinine 2.01 H Estimated GFR 38 L POC Glucose 146 H Random Glucose 154 H Calcium 7.7 L Magnesium Total Bilirubin 23.4 H AST 131 H ALT 72 Alkaline Phosphatase 148 H Ammonia Total Protein 4.0 L Albumin 1.8 L 09/01/17 09/01/17 09/01/17 07:48 08:38 12:52 WBC RBC Hgb Hct MCV MCH MCHC RDW Plt Count MPV Prelim Diff (Auto) Neut % (Auto) Lymph % (Auto) [place] % (Auto) Eos % (Auto) Baso % (Auto) Neut # (Auto) Lymph # (Auto) [place] # (Auto) Eos # (Auto) Baso # (Auto) CBC Comment WBC Differential Total Counted Neutrophils % (Manual) Seg Neuts % (Manual) Band Neutrophils % Band Neuts % (Manual) Lymphocytes % Lymphocytes % (Manual) Monocytes % Monocytes % (Manual) Neutrophils # (Manual) Abs Neuts (Manual) Differential Comment Toxic Granulation Toxic Vacuolation Platelet Estimate Platelet Morphology Plt Morphology Comment Tear Drop Cells Acanthocytes (Spur) Keratocytes PT 38.0 H INR 3.8 APTT Sodium Potassium Chloride Carbon Dioxide Anion Gap BUN Creatinine Estimated GFR POC Glucose 211 H 161 H Random Glucose Calcium Magnesium Total Bilirubin AST ALT Alkaline Phosphatase Ammonia Total Protein Albumin Result Diagrams: 09/01/17 07:40 09/01/17 07:40 Assessment and Plan Pertinent Non-Medical Issues: Psychosocial: Lives with mother and 8 y/o son. Has appeared depressed -- rarely leaves the house. 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 Ethical issues impacting care: No known ethical issues impacting care at this time. . Important Contacts: Lindsay Lira (mother, HCS) [phone] Dr. Deyvi Villagomez (cousin / blood and plasma laboratory assistant-critical care physician in [facility]) [phone] Prognosis: On the one hand the patient is relatively young, denies prior history of severe liver disease, has no current problems with bleeding or encephalopathy , and is not going through withdrawal. On the other hand, he has Maddrey's Discriminant Function sore that is quite high suggesting his short term prognosis is very poor. In addition, there has been very little movement of his liver function studies since admission. Now with possible PNA. Plan: == Code Status -- FULL CODE == Decision making -- Pt lethargic, nodding off, ambivalent and minimally participatory in discussions on code status and goals, likely 2/2 encephalopathy. is not interested in a medical update and asked his parents and I to leave the room while discussing his condition so he could watch TV. Recommend shared decision making at this time. Should he become incapacitated he completed a health care surrogate designation and assigns his mother -- Lindsay Lira -- as primary surrogate and his aunt -- Anjelica Salmeron -- as alternate. == Goals of medical treatment -- Patient and family currently desire aggressive care given the patient's age, the fact that he has a young child, and the fact that this is his first hospitalization for hepatic disease. Family has requested transfer to [facility] for evaluation by a nurse administrator. Accepting nurse administrator has been found and transfer is in process per Dr. Estevez. Family has been made aware of poor prognosis regardless of workup but is willing to undergo transfer as a last ditch effort. == Symptoms * Fatigue/malaise - multifactorial, 2/2 encephalopathy, poss PNA, discomfort from ascites?. * Ascites -- Chest CT 08/23 notable increased ascites from prior. Want to avoid paracentesis while coagulopathy is severe. Being treated with diuretic therapy at this time. Diuretic therapy could be advanced if renal function improves. Albumin infusing, 75mg daily spironolactone, 20 mg IV twice daily. * Confusion -- likely from hepatic encephalopathy. on lactulose, rifaximin. * Edema --improving on IV Lasix, significant pedal pitting edema. Nontender. Albumin infusing. on 75 mg daily spironolactone, Lasix now 20 mg IV twice daily. Palliative care will continue to follow to assist with symptom management and to further clarify goals of medical treatment as the clinical course evolves. Attestation Collaborating MD Comments: Chart reviewed. Case discussed with palliative care STRUCTURAL STE[employer] SUPERVISOR. Above STRUCTURAL STEEL SHOP SUPERVISOR note reviewed and I concur. . Attestation: To help prompt me to consider important information that might be impacting today's encounter and assessment, information from prior notes written by myself or my colleagues may have been "brought forward" into today's note. My signature on this note, however, is an attestation that I personally performed the exam, history, and/or decision-making noted today, and, unless otherwise indicated, the interactions with patient, family, and staff as well as the review of records all occurred today. I also attest that the listed assessment and stated plan reflect my best clinical judgment today based on the combination of historical information, prior notes, and today's exam/ interactions. When time spent is documented, it refers only to time spent today by the signer, or if indicated, combined time spent today by collaborating physician/nurse practitioner. .
--- NOTE | 2017-09-01 18:50 | P.PN ---
Subjective Interval history: alert on O2 NO DISTRESS Physical Exam Vital signs: Vital Signs 08/31/17 20:03 08/31/17 21:32 08/31/17 23:56 Temperature 97.8 F Pulse Rate 94 H 92 H 91 H Respiratory Rate 17 Blood Pressure 104/58 L Pulse Oximetry 94 L 09/01/17 00:00 09/01/17 04:00 09/01/17 04:04 Temperature 97.4 F L 97.5 F L Pulse Rate 88 94 H 92 H Respiratory Rate 19 19 Blood Pressure 98/52 L 101/51 L Pulse Oximetry 93 L 94 L 09/01/17 08:00 09/01/17 12:00 09/01/17 16:00 Temperature 98.0 F 97.4 F L 98.1 F Pulse Rate 86 90 86 Respiratory Rate 20 22 Blood Pressure 95/47 L 96/55 L 95/56 L Pulse Oximetry 94 L 94 L 85 L 09/01/17 16:54 Temperature Pulse Rate Respiratory Rate Blood Pressure Pulse Oximetry 95 Intake & Output 08/31/17 09/01/17 09/01/17 18:59 06:59 18:59 Intake Total 150 / 150 250 / 250 Balance 150 / 150 250 / 250 Weight 96.3 kg Intake: IV 150 / 150 250 / 250 Flexbumin 25% Inj 50 ML @ 60 50 / 50 50 / 50 mls/hr IV.SIG Q12H OLY Rx#: [id number] Maxipime Inj 2,000 MG In NS Inj 100 / 100 100 ML @ 200 mls/hr IV.SIG Q12H OLY Rx#:[id number] Teflaro Inj 600 MG In NS Inj 100 / 100 100 / 100 100 ML @ 100 mls/hr IV.SIG Q12H OLY Rx#:[id number] Oral 0 / 0 Other: # Incontinent Voids 2 Narrative: GENERAL: JAUNDICED SKIN: Warm and dry. HEAD: Atraumatic. Normocephalic. EYES: Pupils equal and round. No scleral icterus. No injection or drainage. ENT: No nasal bleeding or discharge. Mucous membranes pink and moist. NECK: Trachea midline. No JVD. CARDIOVASCULAR: Regular rate and rhythm. RESPIRATORY: No accessory muscle use. Clear to auscultation. Breath sounds equal bilaterally. GASTROINTESTINAL: Abdomen soft, non-tender, nondistended. Hepatic and splenic margins not palpable. MUSCULOSKELETAL: Extremities without clubbing, cyanosis, or edema. No obvious deformities. NEUROLOGICAL: Awake and alert. No obvious cranial nerve deficits. Motor grossly within normal limits. Five out of 5 muscle strength in the arms and legs. Normal speech. PSYCHIATRIC: Appropriate mood and affect; insight and judgment normal. Results - Labs CBC & Chem 7: 09/01/17 07:40 09/01/17 07:40 Laboratory Results - last 24 hr 08/31/17 09/01/17 09/01/17 20:37 07:40 07:40 WBC 5.7 RBC 2.11 L Hgb 7.8 L Hct 22.5 L MCV 106.7 H MCH 37.0 H MCHC 34.7 RDW 16.0 Plt Count 29 L MPV 9.7 Prelim Diff (Auto) Slide review pending Neut % (Auto) 87.5 H Lymph % (Auto) 6.5 L [place] % (Auto) 3.2 Eos % (Auto) 2.6 Baso % (Auto) 0.2 Neut # (Auto) 5.0 Lymph # (Auto) 0.4 L [place] # (Auto) 0.2 Eos # (Auto) 0.2 Baso # (Auto) 0.0 WBC Differential Manual diff final Seg Neuts % (Manual) 90 H Band Neuts % (Manual) 7 H Lymphocytes % (Manual) 1 L Monocytes % (Manual) 2 Abs Neuts (Manual) 5.5 Differential Comment . Toxic Granulation 2+ H Toxic Vacuolation Present H Platelet Estimate Low L Platelet Morphology Enlarged H Tear Drop Cells 1+ H Acanthocytes (Spur) Occ H Keratocytes Occ H PT INR Sodium 141 Potassium 4.0 Chloride 109 H Carbon Dioxide 16.7 L Anion Gap 15 BUN 72 H Creatinine 2.01 H Estimated GFR 38 L POC Glucose 146 H Random Glucose 154 H Calcium 7.7 L Total Bilirubin 23.4 H AST 131 H ALT 72 Alkaline Phosphatase 148 H Total Protein 4.0 L Albumin 1.8 L 09/01/17 09/01/17 09/01/17 07:48 08:38 12:52 WBC RBC Hgb Hct MCV MCH MCHC RDW Plt Count MPV Prelim Diff (Auto) Neut % (Auto) Lymph % (Auto) [place] % (Auto) Eos % (Auto) Baso % (Auto) Neut # (Auto) Lymph # (Auto) [place] # (Auto) Eos # (Auto) Baso # (Auto) WBC Differential Seg Neuts % (Manual) Band Neuts % (Manual) Lymphocytes % (Manual) Monocytes % (Manual) Abs Neuts (Manual) Differential Comment Toxic Granulation Toxic Vacuolation Platelet Estimate Platelet Morphology Tear Drop Cells Acanthocytes (Spur) Keratocytes PT 38.0 H INR 3.8 Sodium Potassium Chloride Carbon Dioxide Anion Gap BUN Creatinine Estimated GFR POC Glucose 211 H 161 H Random Glucose Calcium Total Bilirubin AST ALT Alkaline Phosphatase Total Protein Albumin 09/01/17 17:34 WBC RBC Hgb Hct MCV MCH MCHC RDW Plt Count MPV Prelim Diff (Auto) Neut % (Auto) Lymph % (Auto) [place] % (Auto) Eos % (Auto) Baso % (Auto) Neut # (Auto) Lymph # (Auto) [place] # (Auto) Eos # (Auto) Baso # (Auto) WBC Differential Seg Neuts % (Manual) Band Neuts % (Manual) Lymphocytes % (Manual) Monocytes % (Manual) Abs Neuts (Manual) Differential Comment Toxic Granulation Toxic Vacuolation Platelet Estimate Platelet Morphology Tear Drop Cells Acanthocytes (Spur) Keratocytes PT INR Sodium Potassium Chloride Carbon Dioxide Anion Gap BUN Creatinine Estimated GFR POC Glucose 169 H Random Glucose Calcium Total Bilirubin AST ALT Alkaline Phosphatase Total Protein Albumin - Imaging Impressions Chest Ultrasound 09/01/17 00:00 CONCLUSION: 1. Inadequate fluid for paracentesis Assessment and Plan - Plan HEPATIC FAILURE RESPIRATORY FAILURE PLAN O2 NEEDED PULM TOILET
[2017-09-01] MEDS: Dextrose 5%/NaCl 0.9% Inj 1,000 ML IV.CONT SCH (22:20)
[2017-09-02] MEDS: Pentoxifylline 400 MG Controlled Release Tablet PO SCH (05:05)
[2017-09-02] MEDS ORDERED: Sodium Bicarbonate 8.4% Inj 50 MEQ/50 ML Syringe IV.CONT ONE (08:29)
[2017-09-02] MEDS ORDERED: Calcium Chloride Inj 1 GM/10 ML Syringe IV.CONT ONE (08:29)
--- NOTE | 2017-09-02 08:30 | P.PCN ---
Date of procedure: 09/02/17 Pre-op diagnosis: Cardiopulmonary arrest Post-op diagnosis: same Procedure: Endotracheal intubation Emergency endotracheal intubation during cardiopulmonary arrest. The patient was already on a color television console monitor including continuous pulse oximetry, undergoing CPR. Rapid Sequence Intubation was conducted. With no medication given. Using a direct laryngoscope, #3 Mac blade, grade 1 view was obtained and a size 8.0 endotracheal tube was obtained with stylet, the patient was intubated on the first attempt. The stylet was removed and cuff balloon was inflated. Appropriate endotracheal tube position was confirmed by direct visualization of vocal cord passage, fogging of the tube, CO2 colometric indicator and symmetric breath sounds. The tube was secured at 24 cm at the lips. Post intubation chest x-ray is pending at this time. Anesthesia: none Surgeon: Kar Garner Estimated blood loss (mL): 0
--- NOTE | 2017-09-02 09:03 | P.PCN ---
Date of procedure: 09/02/17 Pre-op diagnosis: Asystole Post-op diagnosis: same Procedure: Date: 09/02/17 Procedure: Cardiopulmonary resucitation Indication: Asystolic cardiac arrest Details of procedure: I responded to [facility] called at 08:06. Patient with prolonged hospitalization , acute liver failure, ROSALIA, reportedly awaiting transfer to [facility]. Nurses report that he was sleeping during shift change at 7 am. He was found unresponsive, pulseless, and asystole. CPR was ongoing upon my arrival. Patient had excellent PIV access. Per ACLS protocol pt received CPR, manual bag-valve ventilation, and ACLS drugs. He was intubated by Dr. Garner with only few seconds disruption of chest compressions. Bedside ultrasound was then performed and there was cardiac standstill, no pericardial effusion, +sliding lung sign bilaterally. Despite cardiac standstill, continued ACLS. He received Epinephrine 7mg , CaCl2 1 amp, Sodium bicarb 3 amps, NS I liter IV. Patient remained in asystole throughout the code. After 25 minutes resuscitation we were unable to restore spontaneous circulation. Patient remained in asystole with standstill on repeat bedside ultrasound. Pt was pronounced at 08:31 hours. I contacted the patient's mother, Lindsay Ladd, but there was no answer. I left message for her to call the hospital.
--- NOTE | 2017-09-02 09:06 | P.DN ---
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
--- NOTE | 2017-09-05 14:59 | P.DS ---
Date of admission: 08/01/17 16:35 Primary care physician: Manolo Guido MD Brief History from admission: This is a 31-year-old male with history of diabetes mellitus type 2, insulin- dependent, and neuropathy with mild to moderate alcohol use presenting with jaundice. Per patient, he has been in his usual state of health until about 1 week ago when he started noticing that he is becoming yellow on his skin in his eyes. Today, family urged him to go to the emergency department because of severe yellowing. Other than jaundice, he progressively experienced generalized weakness with difficulty walking, losing his balance and had to use a cane. There is no note of fever or chills. Moreover, he also noticed his urine turning dark, almost tea colored about 1 week ago. No change in the color of the stools. He denies any abdominal pain, fever, chills, history of IV drugs, hepatitis, hematochezia or melena. There is note of one episode of severe nausea and vomiting about 3 weeks ago which resolved spontaneously. He also noticed increasing distention of his abdomen and lower extremity edema. Patient denies excessive use of Tylenol. Of note, he used to drink a lot in [id number], almost 1 bottle of vodka every day for 3 months but he stopped. He claims that he is a social drinker, drinks about 2-4 bottles of beer every 2-3 times per week. DS: Diagnosis - Discharge Diagnosis (1) Acute liver failure Status: Acute DS: Summary Hospital Course: 31-year-old male admitted secondary to jaundice with liver failure. Initially, patient was thought to have obstructive jaundice. HIDA scan did not show any obstruction. Gastroenterology was consulted. Patient was found to have acute febrile failure with transaminitis, hyperbilirubinemia and coagulopathy likely secondary to alcohol abuse. Patient was started Xifaxan, lactulose, Aldactone and steroids for acute alcoholic hepatitis. He was also started on pentoxifylline. Biopsy was recommended but patient was not stable enough to get an liver biopsy especially with coagulopathy. Patient also had acute renal failure which improved with volume resuscitation. Patient was awaiting transfer to [facility] however patient was found unresponsive. ACLS was done but the patient did not get ROSC. - Time Spent with Patient Total time spent providing and/or coordinating discharge services: Less than 30 minutes Results Procedures completed during hospitalization: HIDA scan - Impressions ITS Impressions Chest X-Ray 08/30/17 00:00 CONCLUSION: Worsening right base infiltrate. Chest Ultrasound 09/01/17 00:00 CONCLUSION: 1. Inadequate fluid for paracentesis Discharge Plan - Discharge Disposition Patient Disposition: 20 - Discharge Details Date/Time: 09/02/17 08:30 - Physicians Team Primary Care Provider: Manolo Guido Attending Provider: Cedrick Goncalves Other Providers: Willa Gonzalez MD ; Noy Aguilar MD ; Rose Marie Cage MD ; Lazarus Lan MD ; Chuckie Noguera MD ; Casey Stout MD ; Abran Mathis MD - Rxs /Orders / Referrals /Forms Prescriptions: No Action gabapentin 300 mg Capsule 300 mg PO TID insulin aspart U-100 100 unit/mL Solution 1 sliding scale dose SUB-Q DIRECTED insulin glargine 100 unit/mL Solution 50 unit SUB-Q DAILY Referrals: Manolo Guido MD [Primary Care Provider] - See Instructions
== END 2017-09-02 08:30 | disposition expired ==
LOC: N04 16:35
PROVIDERS: ADMIT Hospitalist; ATTEND Hospitalist